=== PATIENT | male | born 1940 | race Caucasian/White ===

== ENCOUNTER 2016-11-14 22:58 | Inpatient (IN) | payer MEDICARE ==
[~2016-11-14] VITALS: Ht 177.8 cm; Wt 115.5 kg
[~2016-11-14 22:58] MED LIST: ARIP2TAB10 PO; CARV3.122 PO; CELE200C PO; CITA20TA11 PO; DIPH1TAB PO; FLUN25SP NOSTRIL; FLUN25SP NS; LACT1CAP65 PO; LOPE1TAB13 PO; METO2.5T12 PO; NITR0.3T6 SL; NITR0.4T SL; OMEG1CAP56 PO; OXYC-466 PO; POLY17PO6 PO; POTA20TA16 PO; PREG150C PO; RANI150C4 PO; SULF1TAB35 PO; TORS20TA3 PO; VIT1TABL83 PO; WARF2.5T82 PO; WARF5TAB7 PO; ZOLP5TAB2 PO; ZYL100 PO
--- NOTE | 2016-11-14 22:58 | ED.REPORT ---
HPI-Dyspnea / Wheezing Date of Service Nov 14, 2016 ED Provider: Dr. Ceferino Pink MD Patient is a 76 year old male with a history of A-fib on warfarin s/p pacemaker , CAD, previous TIA, CHF, hypertension and SURESH who presents to the ED via EMS with decreased LOC and dyspnea that began just prior to arrival. Family was visiting with the patient who was at his baseline prior to the onset of dyspnea. He was reportedly "blue" and unresponsive which is when the family decided to contact EMS. EMS report that the patient was found with decreased LOC at the scene and O2 stats in the 60's and 70's. His stats improved to 96% following CPAP treatment. Patient was able to provide one word responses en route. Patient is DNI. Nursing Notes Stated Complaint: DECREASED LOC, RESPIRATORY DISTRESS Nursing Notes Reviewed: Yes Allergies: Coded Allergies: morphine (Verified Adverse Reaction, Unknown, HALLUCINATIONS 20 YEARS AGO PER PATIENT, 01/31/16) WANTS TO TRY [employer] ANYWAY 06-06-11 Scheduled Allopurinol (Allopurinol) 100 Mg Tablet 100 MG PO QAM Aripiprazole (Abilify) 2 Mg Tablet 2 MG PO DAILY Celecoxib (Celebrex) 200 Mg Capsule 200 MG PO QAM Citalopram (Citalopram) 20 Mg Tablet 60 MG PO QAM Flunisolide (Flunisolide) 25 Ml [place] 2 SPRAYS NOSTRIL HS thursday Guaifenesin/Dextromethorphan (Robitussin Zcbqk-Inyok-Rgaj Dm) 200 Mg-10 Mg Capsule 5 ML PO Q6H Guaifenesin/Dextromethorphan (Robitussin Cough-Chest Dm Liq) 100 Mg-5 Mg/5 Ml Liquid 10 ML PO Q6H Lactobacillus Acidophilus (Probiotic) 1 Each Capsule 1 EACH PO DAILY Lanolin Alcohol/Mo/W.pet/[place] (Eucerin Creme) 454 Gm Cream..g. 454 GM TP BID Metolazone (Metolazone) 2.5 Mg Tablet 2.5 MG PO every other day Metolazone (Metolazone) 2.5 Mg Tablet 2.5 MG PO DAILY Metoprolol Succinate ER (Metoprolol Succinate ER) 25 Mg Tab.er.24h 12.5 MG PO DAILY [place]-3 Fatty Acids/Fish Oil ([place] 3 1,000 mg Softgel) 1 Each Capsule 1 EACH PO DAILY Potassium Chloride (Potassium Chloride) 20 Meq Tab.er.prt 20 MEQ PO DAILYWM Pregabalin (Lyrica) 150 Mg Capsule 150 MG PO BID Ranitidine (Ranitidine) 150 Mg Capsule 150 MG PO BID Sulfamethoxazole/Trimeth 800-160 mg (Bactrim DS 800-160 mg) 1 Each Tablet 1 TABLET PO BID Torsemide (Torsemide) 20 Mg Tablet 80 MG PO DAILY Vit B Comp/C/FA/Iron/Vit E (Vitamin B Complex Tablet) 1 Each Tablet 1 EACH PO DAILY Warfarin Sodium (Warfarin Sodium) 2.5 Mg Tablet 2.5 MG PO Sun/Thu/Thu//Sat Warfarin Sodium (Warfarin Sodium) 5 Mg Tablet 5 MG PO Mon/Thu. Zolpidem Tartrate (Edluar) 5 Mg Tab.subl 5 MG PO HS Scheduled PRN Calcitonin,Raymond,Synthetic (Calcitonin-Raymond) 3.7 Ml [place].pump 3.7 ML NS DAILY PRN PRN alternate nostrils Diphenoxylate/Atropine 2.5-0.025 mg (Lomotil 2.5-0.025 mg) 1 Each Tablet 1 TABLET PO BID PRN PRN For Diarrhea or Loose Stool Ibuprofen (Ibuprofen) 400 Mg Tablet 800 MG PO Q4H PRN PRN For Pain Lactulose (Lactulose) 20 Gm/30 Ml Solution 40 GM PO BID PRN PRN For Constipation Loperamide/Simethicone (Imodium Multi-Symptom Rel Cplt) 1 Each Tablet 1 EACH PO PRN For Diarrhea or Loose Stool Lubiprostone (Amitiza) 24 Mcg Capsule 24 MCG PO BID PRN PRN opioid induced constipation Magnesium Citrate (Magnesium Citrate) 296 Ml Solution 148 ML PO PRN For Constipation Nitroglycerin SL (Nitrostat) 0.4 Mg Tab.subl 0.4 MG SL Q5MIN PRN PRN For Chest Pain Nystatin (Nystatin) 1 Each Powder.ea. 1 EACH MC TID PRN PRN For Itching Polyethylene Glycol 3350 (Miralax) 17 Gm Powd.pack 17 GM PO DAILY PRN PRN For Constipation Saccharomyces Boulardii (Florastor) 250 Mg Capsule 250 MG PO BID PRN PRN For Diarrhea or Loose Stool oxyCODONE-Acetaminophen 10-325 mg (oxyCODONE-Acetaminophen 10-325 mg) 1 Each Tablet 1 TABLET PO Q6H PRN PRN For Pain General Time Seen by MD: 22:58 Chief Complaint Other (Dyspnea) Hx Obtained From: EMS Arrived By: Ambulance Sudden in Onset?: Yes Onset Occurred: Just prior to arrival Symptom Duration: Since onset Pertinent Negative: Pt denies other symptoms Recent Healthcare: No recent hospitalization, Recent doctor visit Past Medical History Past Medical History Notes: PCP: Dr. Van Sutton Senior Database Programmer: Dr. George Rene Past Medical History A-fib on warfarin h/o CHF (echo with EF of 30% January 2015) non-ischemic cardiomyopathy, ?ho CAD HTN h/o Saunders Pontocerebellear degeneration History of chronic Bactrim use for "lifelong staph infection suppression" (Patient self D/C'd 11/23/15) History of obstructive sleep apnea History of chronic bilateral lower extremity edema BPH Reports: Coronary artery disease, Transient ischemic attack Past Surgical History Bilateral knee replacement Pacemaker-recently revised Cardiac ablation Splenectomy Status post cardiac catheterization in October 02 widely patent coronary arteries Reports: Appendectomy Family History Reports: Stroke Smoking History Never Smoker Social History Been denied placement in homes many times due to behavioral issues, very poor social support, Alcohol Use: Denies alcohol use Drug Use: Denies drug use Other Social History: Poor social support, Lives alone, Local resident Ambulatory Status Walker Review of Systems Decreased responsiveness Unable to Obtain ROS Patient condition (Limited due to Pt condition - provided by EMS) Respiratory: Reports: Shortness of breath Complete sys rev & neg: except as marked. Neurologic: Reports: Change LOC Physical Exam Initial Vital Signs Vital Signs (First) Date Time Temp Pulse Resp B/P Pulse Ox O2 Delivery O2 Flow Rate FiO2 11/14/16 23:05 80 25 120/52 93 BiPAP 11/14/16 23:19 38.4 11/14/16 23:41 25 Initial VS: Reviewed, Vital signs abnormal Head / Eyes: Atraumatic, Normocephalic, PERRL Alertness: Positive: Responds to pain stimuli (Minimal response), Responds to verb stimuli (Minimal response) Appearance / Presentation: Positive: Obese, morbidly GENERAL: Limited exam due to minimal pt cooperation Neck: Atraumatic, Supple Respiratory / Chest: Atraumatic, Breath sounds = bilat Resp Distress / Stridor: Positive: Resp distress severe Cardiovascular: Heart rate NL, Regular rhythm, Heart sounds NL, Pulses = bilaterally Lower Ext Edema: Positive: Ankle (extending to the knee), Bilateral 3+ Abdomen: Atraumatic, Soft (Obese), Non-tender, BS normoactive (Active) Organomegaly / Mass / Hernia: Positive: Hernia is reducible, Hernia ventral Lower Extremity / Pelvis / MS: Atraumatic, Neurologic intact, Vascular intact LOWER EXTREMITIES: Well healed R knee replacement scar Skin: Atraumatic, Warm, Dry SKIN: Multiple skin tears and wounds to the lower extremities covered in bandages Chronic venous stasis changes to the skin of the ankles Neurologic: CN II - XII intact NEURO: No asymmetry in muscle tone Movement in all 4 extremities Upper Extremity / MS: Atraumatic, Neurologic intact, Vascular intact Interpretation & Diagnostics Interpretation & Diagnostics: Venous Blood Gas pH 7.459 pCO2 42 pO2 64.[address] ABDOMEN/PELVIS w/ [facility] IMPRESSION: Retained stool throughout the colon and within the rectal vault compatible constipation Lab Results Interpretation Result Diagram: 11/15/16 0437 11/15/16 0437 Test 11/14/16 23:10 11/15/16 00:26 Band Neutrophils % 0% (1-5) Phosphorus Level 3.4mg/dL (2.5-4.9) Magnesium Level 2.2mg/dL (1.6-2.6) Total Bilirubin 0.9mg/dL (0.0-1.2) Aspartate Amino Transf (AST/SGOT) 24U/L (0-50) Alanine Aminotransferase (ALT/SGPT) 12U/L (0-44) Alkaline Phosphatase 81U/L (25-160) Troponin T 0.013ug/L (0.0-0.011) Pro-B-Type Natriuretic Peptide 3454pg/mL (0-486) Total Protein 8.2g/dL (6.4-8.4) Albumin 3.9g/dL (3.4-5.0) Procalcitonin 0.12ng/mL (0.00-0.08) Urine Color Straw (YELLOW) Urine Appearance Slightly cloudy Urine pH 5.5 (5.0-8.0) Urine Specific [place] 1.014 (1.003-1.035) Urine Protein Negativemg/dL (NEG,TRACE) Urine Glucose (UA) Negativemg/dL (NEGATIVE) Urine Ketones Negativemg/dL (NEGATIVE) Urine Occult Blood Moderate (NEGATIVE) Urine Nitrite Positive (NEGATIVE) Urine Bilirubin Negative (NEGATIVE) Urine Urobilinogen Normalmg/dL (NORMAL) Urine Leukocyte Esterase Moderate (NEGATIVE) Urine RBC 0-2/hpf (0-2) Urine WBC 11-50/hpf (0-5) Urine Epithelial Cells Few/hpf (NONE-MOD) Urine Crystals Amorphous urates (NONE Urine Bacteria Many/hpf (NONE-FEW) Urine Hyaline Casts Rare/lpf (NONE) Urine Granular Casts None seen (NONE SEEN) Urine Waxy Casts None seen (NONE SEEN) Urine Red Blood Cell Casts None seen (NONE SEEN) Urine White Blood Cell Casts None seen (NONE SEEN) Urine Mucus Present (None Seen) Urine Trichomonas None seen (NONE SEEN) Urine Yeast None (NONE SEEN) Urinalysis Comment None Urine Culture Reflexed Indicated Urine Legionella pneumophilia Ag Negative (Negative) Lab Results Interpretation: Elevated white blood count, elevated lactic acid, elevated urine white cell count. ECG Interpretation ECG Interpretation: A-fib ventricular paced rhythm Rate 88 Time: 23:03 Interpreted by: ED physician X-Ray Chest Interpretation Chest Xray Interpretation: IMPRESSION: Left lower lobe pneumonia Interpretation / Wet Read by: Wet read ED physician Re-Eval/Medical Decision Med Decision/Clinical Course 76-year-old male who was found collapsed by his family. His O2 saturation was in the 60-70% range and he was blue. Paramedics started him on CPAP and transported him immediately. Upon arrival here he was minimally responsive but breathing on his own with the CPAP. His O2 saturations had improved to 96%. He is POLST form indicated that he would like noninvasive mechanical ventilation and resuscitation but not intubation. He was febrile and laboratory showed an elevated white count, elevated lactic acid, and elevated urine white blood count. He also has a left lower lobe infiltrate laterally. Blood cultures were obtained and he was given vancomycin, Rocephin, and azithromycin antibiotic coverage. CT scan of his head and abdomen were unremarkable. Case was discussed with Dr. Beatty the patient will be admitted to the hospitalist service, CCU. Re-Evaluation/Progress #1: Time of Eval: 00:41 )( Re-Eval Resp / Chest: Mild wheezing Treatment Summary: Albuterol neb continuous Patient Status: Condition improved Re-Evaluation/Progress Note: Breathing has improved and the pt is increasingly responsive. He is informed of his X-ray results. Re-Evaluation/Progress #2: Time of Eval: 01:02 Re-Evaluation/Progress Note: Pt's son is contacted and informed of his results, diagnosis and the plan to admit to the hospital. Re-Evaluation/Progress #3: Time of Eval: 01:08 Patient Status: Condition improved Re-Evaluation/Progress Note: Pt understands and agrees with the plan to admit. Consultation : Referral / Consult Name: Malcolm Beatty MD Consulted With: Hospitalist Call Returned at: 01:[address]: Will see patient, Agrees with eval, Agrees with plan, Referred to other consult Counseled Regarding: Diagnosis, Lab results, Need for admission Discharge & Departure Impression: Primary Impression: Sepsis Sepsis type: sepsis due to unspecified organism Qualified Code: A41.9 - Sepsis, unspecified organism Additional Impressions: Coma Coma depth: unspecified coma depth Coma timing: at hospital admission Qualified Code: R40.2443 - Other coma, without documented Mikael coma scale score, or with partial score reported, at hospital admission Left lower lobe pneumonia Pneumonia type: due to unspecified organism Qualified Code: J18.1 - Lobar pneumonia, unspecified organism Urinary tract infection Urinary tract infection type: acute cystitis Hematuria presence: without hematuria Qualified Code: N30.00 - Acute cystitis without hematuria Disposition: ADMITTED TO HOSPITAL Discharge Condition All VS Reviewed: Yes Condition: Stable Referrals: Van Sutton MD (PCP) Crit Care Except Billable Proc Time Spent: 75-104 minutes Services Performed: Patient management by me, Time spent at bedside, Reviewing test results, Reviewing imaging, Discussing patient care, Documentation in record, Time with fam/surrogate Critical Care Notes: 76-year-old male with coma and respiratory failure secondary to severe sepsis. He was stabilized and admitted to the CCU. Scribe Attestation Portions of this note were transcribed by Channing Pretty. I, Dr. Pink personally performed the history, physical exam and medical decision-making; I reviewed and confirmed the accuracy of the information in the transcribed note. Signed by: Abiodun Vu, 11/15/16 0112. copies to: Van Sutton MD, Howard L MD Nov 14, 2016 22:58 CHANNING PRETTY Nov 14, 2016 23:06 Re-Evaluation/Progress Note: Pt's son is contacted and informed of his results, diagnosis and the plan to admit to the hospital. Re-Evaluation/Progress #3: Time of Eval: 01:08 Patient Status: Condition improved Re-Evaluation/Progress Note: Pt understands and agrees with the plan to admit. Consultation : Referral / Consult Name: Malcolm Beatty MD Consulted With: Hospitalist Call Returned at: 01:[address]: Will see patient, Agrees with eval, Agrees with plan, Referred to other consult Counseled Regarding: Diagnosis, Lab results, Need for admission Discharge & Departure Impression: Primary Impression: Sepsis Additional Impressions: Coma Left lower lobe pneumonia Urinary tract infection Disposition: ADMITTED TO HOSPITAL Discharge Condition All VS Reviewed: Yes Condition: Stable Referrals: Van Sutton MD (PCP) Saraibanthony Attestation Portions of this note were transcribed by Channing Pretty. I, Dr. Pink personally performed the history, physical exam and medical decision-making; I reviewed and confirmed the accuracy of the information in the transcribed note. Signed by: Abiodun Vu, 11/15/16 0112. copies to: Van Sutton MD, Howard L MD Nov 14, 2016 22:58 CHANNING PRETTY Nov 14, 2016 23:06
[2016-11-14 23:05] VITALS: BP 120/52; PULSE 80; RESP 25; O2SAT 93
[2016-11-14] MEDS ORDERED: 0.9% Sodium Chloride 1,000 ML IV ONE (23:05)
[2016-11-14 23:19] VITALS: BP 105/52; PULSE 72; RESP 18; O2SAT 95
[2016-11-14 23:19] LABS: BASOPHILS % (AUTO) 0.1 % (0-3); EOSINOPHILS % (AUTO) 0 % (0-5); MONOCYTES % (AUTO) 3.1 % (4-12); Mean Corpuscular Hemoglobin 32.5 pg (27.0-35.0); Mean Corpuscular Volume 99.3 fL (81-100); NEUTROPHILS % (AUTO) 92.7 % (40-74); Platelet Count 209 bil/L (150-400)
--- NOTE | 2016-11-14 23:20 | ABG ---
DateTimeAnalyzed 23:13:00 -_ pH ____7.459 - pCO2 ___42.3__ -mmHg pO2 ___64.5__ -mmHg HCO3- ___29.6__ -mmol/L ABE ____5.5__ -mmol/L tHb ___13.6__ -g/dL O2Hb ___90.9__ -% COHb ____1.8__ -% MetHb ____1.3__ -% sO2 ___93.8__ -% FIO2 ___25.0__ -% CPAP ___16.0__ -cmH2O PEEP ____6.0__ -cmH2O Set_RR ___16.0__ -b/min Drawn By _LAB TECH - Date/Time Notified____ 23:19:00 -_ Spontaneous_RR ___24.0__ -b/min Oxygen Device 1 ____BIPAP - Notified Whom DR LEIBRANDT - B 756 -mmHg tO2 ___17.4__ -Vol% Robinson test N/A -
[2016-11-14 23:40] LABS: TROPONIN T 0.013 ug/L (0.0-0.011)
[2016-11-14 23:41] VITALS: RESP 24; O2SAT 95
[2016-11-14 23:52] LABS: Magnesium 2.2 mg/dL (1.6-2.6)
[2016-11-15] VITALS (14 sets, daily range): BP systolic 90–133; BP diastolic 42–90; PULSE 70–78; RESP 17–28; O2SAT 91–99
[2016-11-15] MEDS ORDERED: Azithromycin Inj 500 MG in Dextrose 5% 250 ML IV ONE (00:40)
[2016-11-15] MEDS ORDERED: Vancomycin Dose per Pharmacist XX ONE (00:40)
[2016-11-15] MEDS ORDERED: cefTRIAXone Inj 2,000 MG in Dextrose 5% Minibag Plus 50 ML IV ONE (00:40)
[2016-11-15 00:55] LABS: APPEARANCE,URINE SLIGHTLY CLOUDY (CLEAR,HAZY); COLOR,URINE STRAW (YELLOW); OCCULT BLOOD,URINE MODERATE (NEGATIVE); PH,URINE 5.5 (5.0-8.0)
[2016-11-15 00:56] LABS: UROBILINOGEN,URINE NORMAL (NORMAL)
[2016-11-15 01:07] LABS: INR 3.06 ratio
[2016-11-15] MEDS ORDERED: Vasopressin Inj 20 UNIT in 0.9% Sodium Chloride 100 ML IV SCH (01:10)
[2016-11-15] MEDS ORDERED: Lactated Ringer's 1,000 ML IV PRN (01:10)
[2016-11-15] MEDS ORDERED: DOBUTamine 500 mg/250 D5W 500,000 MCG in IV Premix 1 EACH IV PRN (01:10)
[2016-11-15] MEDS: Lactated Ringer's 1,000 ML IV SCH ×2 (01:10→06:25)
[2016-11-15] MEDS: 0.9% Sodium Chloride 1,000 ML IV SCH ×5 (01:10→13:57)
[2016-11-15] MEDS ORDERED: Norepineph 8,000 mCg/250 mL NS 8,000 MCG in IV Premix 1 EACH IV PRN (01:10)
[2016-11-15] MEDS ORDERED: Ondansetron 2 mg/mL 2 mL Inj IVPUSH PRN (01:10)
[2016-11-15] MEDS ORDERED: Vancomycin Dose per Pharmacist XX SCH (01:10)
--- NOTE | 2016-11-15 01:33 | PCM.HPMED ---
Subjective Date of Service Nov 15, 2016 Primary Provider: Admitting Physician: Primary Care Physician: Van Sutton MD Attending Physician: Admit Status: From the Emergency Department, Full Admit, Critical Care Chief Complaint: Unresponsive History of Present Illness: Jerod Wilkins is a 76 year old male with Chronic A-fib on warfarin s/p pacemaker, Coronary syndrome, previous TIA, CHF, hypertension and SURESH who presents to [facility] emergency department via EMS with decreased consciousness and dyspnea that began just prior to arrival. Patient was poor historian due to decreased consciousness. NO members were present on my evaluation. Emergency department records showed: Family was visiting with the patient who was at his baseline prior to the onset of dyspnea. He was reportedly "blue" and unresponsive which is when the family decided to contact EMS. EMS report that the patient was found with decreased LOC at the scene and O2 stats in the 60's and 70's. His stats improved to 96% following CPAP treatment. Patient was able to provide one word responses en route. Case discussed with Dr Pink, patient placed on BIPAP as he is DNI, with some noticeable improvement. Patient started on Antibiotics and received Vancomycin, Ceftriaxone and Azithromycin. Review of Systems: unable to be obtained due to confusion Allergies Coded Allergies: morphine (Verified Adverse Reaction, Unknown, HALLUCINATIONS 20 YEARS AGO PER PATIENT, 01/31/16) WANTS TO TRY [employer] ANYWAY 06-06-11 Home Medications From [facility], not yet confirmed Jerod Wilkins Jr. [id number] 1940 11/05/2016 02:31 PM Page: 06/19 Lactobacillus acidophilus capsule daily allopurinol 100 mg tablet take 1 tablet by oral route 1 times every day Amitiza 24 mcg capsule take 1 capsule by oral route 2 times every day with food and water aripiprazole 2 mg tablet take 1 tablet daily Bactrim DS 800 mg-160 mg tablet take 1 tablet by oral route every 12 hours calcitonin (salmon) 200 unit/actuation nasal spray Use 1 spray in alternating nostrils daily Celebrex 200 mg capsule take 1 capsule (200MG) by ORAL route every morning for pain/inflammation. Cetaphil Moisturizing topical cream apply by Topical route 1 times every day for dry skin. No stop date citalopram 20 mg tablet take 3 tablet by oral route every day docusate sodium 100 mg capsule take 1 capsule by oral route 2 times every day at bedtime as needed Eucerin topical cream Apply BID to bilateral lower extremities Eucerin Daily Protection SPF 30 lotion apply BID daily Fish Oil 1,000 mg (120 mg-180 mg) capsule daily Florastor 250 mg capsule 1 tab bid ibuprofen 200 mg tablet take 2 tablet by oral route tid as needed for PAIN ( with food) Imodium Multi-Symptom Relief 2 mg-125 mg tablet 1 tab PRN for bowel movement lactulose 20 gram/30 mL oral solution take 30 milliliter by oral route 2 times every day lidocaine 4 % laryngotracheal solution as needed prior to wound change Lomotil 2.5 mg-0.025 mg tablet take 1 tablet by oral route every 12 hours as needed Lyrica 150 mg capsule take 1 capsule by oral route 2 times every day magnesium citrate oral solution 0.5 bottle as needed for constipation if bowel protocol and lactulose is ineffective metolazone 2.5 mg tablet take 1 tablet by oral route every 2 days metoprolol succinate ER 25 mg tablet,extended release 24 hr take 0.5 (12.5 mg) tablet by oral route every day Nitrostat 0.[address] 1 tablet by sublingual route at 1st sign of attack; may repeat every 5 minutes up to 3 tabs; if norelief seek medical help nystatin 100,000 unit/gram topical powder apply by topical route 2 times every 8 hours to the affected area(s) prn oxycodone-acetaminophen 10 mg-325 mg tablet take 1 tablet by oral route every 6 hours as needed potassium chloride ER 20 mEq tablet,extended release(part/cryst) take 1 tablet by oral route every day with food ranitidine 150 mg tablet take 1 tablet (150MG) by oral route 2 times every day torsemide 20 mg tablet take 4 tablet by oral route every morning vitamin B complex tablet daily warfarin 5 mg tablet take 1/2 tablet (2.5mg) Mondays and 1 tablet (5mg) all other days of the week zolpidem 5 mg tablet take 1 tablet by oral route every day at bedtime ANTICOAGULATION THERAPY: Take your warfarin as directed. Start taking your warfarin on 11/05/2016. The warfarin should be taken Sun 2.5mg (1 tablet), Mon 2.5mg (2 tablets), Tu 2.5mg (1 tablet), Thu 2.5mg (1 tablet), Thurs 2.5mg (1 tablet), Fri 2.5mg (2 tablets), Sat 2.5mg (1 tablet). PMH Congestive heart failure. Coronary artery disease. Atrial fibrillation s/p AV Ablation Pacer in place. Obstructive sleep apnea. Obesity. Bilateral lower extremity edema with venous stasis changes and chronic Unna wraps. Gout. Benign prostatic hypertrophy. History of Staph lugdunensis in the left knee in 2010 without any clarity as to how this was resolved in the chart. . 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 Status post appendectomy. Achilles tendon surgery Pacemaker implantation Family History His father at age 50 of a cerebrovascular accident. Mother lived to 93 Brother has Atrial fibrillation Social History Hx Alcohol Use: No Hx Substance Use: No Hx Tobacco Use: No Smoking Status: Never Smoker Living Arrangement: Alone Exam Vital Signs Vital Sign - Last Date Time Temp Pulse Resp B/P Pulse Ox O2 Delivery O2 Flow Rate FiO2 11/15/16 00:03 72 22 98/54 93 11/14/16 23:41 25 11/14/16 23:19 38.4 BiPAP Intake and Output 11/14/16 11/14/16 11/15/16 Cumulative From/Thru 15:00 23:00 07:00 11/14/16 23:05 - 11/15/16 00:02 Intake Total 999 ml 999 ml Balance 999 ml 999 ml Intake IV Total 999 ml 999 ml Exam General: Arousable, tachypnic and on the BIPAP machine Eyes: PERRLA, Scleral Anicteric Mouth: Mouth Normal, Mucous Membranes Moist/[place] Neck: Supple, no Thyromegaly, trachea central. Chest & Lungs: decreased breathe sounds at bases Cardiovascular: Normal S1, Normal S2, No Murmurs/Rubs/Gallops, Regular Rate/ Rhythm Pulses: Radial (present and equal), Dorsalis Pedi (present and equal) Abdomen: Soft, Non-tender, Non-distended, Normoactive bowel tones. Musculoskeletal: Unremarkable. Normal range of motion, no swollen or erythematous joints Extremities: 1 + pitting edema, no cyanosis, no clubbing. Skin: No rashes. Warm and dry, no erythematous areas. healed leg ulcers. Multiple skin tears and wounds to the lower extremities covered in bandages Chronic venous stasis changes to the skin of the ankles Neurological: Grossly neurologically intact moving all extremities Lymphatic: Lymph nodes Cervical and Axillary not palpable. Lab and Diagnostics Labs Laboratory Tests Test 11/14/16 23:10 11/15/16 00:26 White Blood Count 20.5th/mm3 (3.8-10.1) Red Blood Count 4.16mil/mm3 (4.40-5.80) Hemoglobin 13.5g/dL (13.8-17.2) Hematocrit 41.3% (41.0-50.0) Mean Corpuscular Volume 99.3fL (81-100) Mean Corpuscular Hemoglobin 32.5pg (27.0-35.0) Mean Corpuscular Hemoglobin Concent 32.7% (32.0-37.0) Red Cell Distribution Width 13.6% (12.3-15.4) Platelet Count 209bil/L (150-400) Neutrophils (%) (Auto) 92.7% (40-74) Lymphocytes (%) (Auto) 3.8% (14-46) Monocytes (%) (Auto) 3.1% (4-12) Eosinophils (%) (Auto) 0% (0-5) Basophils (%) (Auto) 0.1% (0-3) Band Neutrophils % 0% (1-5) Prothrombin Time 33.5sec (8.1-12.5) Prothromb Time International Ratio 3.06ratio Sodium Level 137mEq/L (134-144) Potassium Level 3.3mEq/L (3.5-5.2) Chloride Level 90mEq/L (97-108) Carbon Dioxide Level 26mmol/L (18-29) Blood Urea Nitrogen 62mg/dL (8-27) Creatinine 1.95mg/dL (0.76-1.27) Estimat Glomerular Filtration Rate 36mL/min (>59) Glucose Level 161mg/dL (60-99) Lactic Acid Level 3.4mmol/L (0.4-2.0) Calcium Level 9.3mg/dL (8.5-10.1) Magnesium Level 2.2mg/dL (1.6-2.6) Total Bilirubin 0.9mg/dL (0.0-1.2) Aspartate Amino Transf (AST/SGOT) 24U/L (0-50) Alanine Aminotransferase (ALT/SGPT) 12U/L (0-44) Alkaline Phosphatase 81U/L (25-160) Troponin T 0.013ug/L (0.0-0.011) Pro-B-Type Natriuretic Peptide 3454pg/mL (0-486) Total Protein 8.2g/dL (6.4-8.4) Albumin 3.9g/dL (3.4-5.0) Urine Color Straw (YELLOW) Urine Appearance Slightly cloudy Urine pH 5.5 (5.0-8.0) Urine Specific [place] 1.014 (1.003-1.035) Urine Protein Negativemg/dL (NEG,TRACE) Urine Glucose (UA) Negativemg/dL (NEGATIVE) Urine Ketones Negativemg/dL (NEGATIVE) Urine Occult Blood Moderate (NEGATIVE) Urine Nitrite Positive (NEGATIVE) Urine Bilirubin Negative (NEGATIVE) Urine Urobilinogen Normalmg/dL (NORMAL) Urine Leukocyte Esterase Moderate (NEGATIVE) Urine RBC 0-2/hpf (0-2) Urine WBC 11-50/hpf (0-5) Urine Epithelial Cells Few/hpf (NONE-MOD) Urine Crystals Amorphous urates (NONE Urine Bacteria Many/hpf (NONE-FEW) Urine Hyaline Casts Rare/lpf (NONE) Urine Granular Casts None seen (NONE SEEN) Urine Waxy Casts None seen (NONE SEEN) Urine Red Blood Cell Casts None seen (NONE SEEN) Urine White Blood Cell Casts None seen (NONE SEEN) Urine Mucus Present (None Seen) Urine Trichomonas None seen (NONE SEEN) Urine Yeast None (NONE SEEN) Urinalysis Comment None Urine Culture Reflexed Indicated Microbiology 11/14/16 Blood Culture, Received Pending 11/15/16 Urine Culture, Received Pending Result Diagram: 11/14/16 2310 11/14/16 2310 Cardiac Echo Impressions Interpretation Summary 09/17/16 The study quality was technically difficult. A contrast injection of Definity was performed to improve assessment of LV function. The left ventricle is mildly dilated. The ejection fraction is estimated to be 50-55%. Compared to the prior exam, left ventricular function is moderately improved. The aortic valve is mildly calcified. The aortic valve is not well visualized. Leaflet mobility is moderately reduced. No significant change in LVOT velocity, consider DIAZ if clinically indicated to further evaluate AV . Assessment & Plan Jerod Wilkins is a 76 year old male with Chronic A-fib on warfarin s/p pacemaker, Coronary syndrome, previous TIA, Congestive heart failure, hypertension and SURESH who presents to [facility] emergency department via EMS with decreased consciousness and dyspnea 1. Acute Respiratory Failure. Present on admission. Persistent and ongoing Etiology is likely due to Sepsis from Pneumonia. Differential diagnosis includes Acute Congestive heart failure (less likely based on no leg edema, BNP despite being elevated is at baseline), Pulmonary embolism (patient therapeutic on Coumadin) - continue BIPAP support and oxygen supplementation - treat underlying cause (see below) 2 Community Acquired Pneumonia. Present on admission Unclear if the patient aspirated. He is immunocompromised but does not meet criteria for healthcare associated pneumonia - continue Vancomycin and Zosyn IV to cover anaerobes - nothing by mouth, ordering a swallow evaluation 3 Severe Sepsis. Present on admission Meeting criteria with fever, tachypnea and Leukocytosis with pulmonary source of infections. Lactic acidosis - continue fluid resuscitations according to sepsis protocol - early initiation of antibiotics 4 Lactic acidosis. Present on admission Due to tissue hypoxia from sepsis - trending levels till normal 5 Acute Kidney Injury. Preset on admission Likely due to pre renal azotemia but consider Acute tubular necrosis Previous episodes of renal disease during previous admissions, suspect patient has underlying chronic kidney disease - avoid nephrotoxic insults 6 Acute Encephalopathy. Present on admission - high risk for delirium, avoid psychoactive if possible 7 Chronic heart failure with improvement of systolic function - holding diuretics for now - monitor closely for clinical evidence of fluid overload 8 Chronic Atrial fibrillation rate controlled currently - monitor on telemetry - Coumadin managed by Pharmacist 9 Coronary disease chronic Hypertension - Acetaminophen as needed for mild pain/fever/headache - Bowel regimen as needed - Antiemetic as needed Patient admitted under inpatient status with expected length of stay > 2 midnights for severity of present symptoms, complexities of treatment plan and risk for adverse event . Resuscitation Status: Limited Interventions (DNI) Time spent 50 minutes critical time spend Malcolm Beatty MD Nov 15, 2016 01:33 Bactrim DS 800 mg-160 mg tablet take 1 tablet by oral route every 12 hours calcitonin (salmon) 200 unit/actuation nasal spray Use 1 spray in alternating nostrils daily Celebrex 200 mg capsule take 1 capsule (200MG) by ORAL route every morning for pain/inflammation. citalopram 20 mg tablet take 3 tablet by oral route every day docusate sodium 100 mg capsule take 1 capsule by oral route 2 times every day at bedtime as needed Florastor 250 mg capsule 1 tab bid ibuprofen 200 mg tablet take 2 tablet by oral route tid as needed for PAIN ( with food) lactulose 20 gram/30 mL oral solution take 30 milliliter by oral route 2 times every day Lomotil 2.5 mg-0.025 mg tablet take 1 tablet by oral route every 12 hours as needed Lyrica 150 mg capsule take 1 capsule by oral route 2 times every day magnesium citrate oral solution 0.5 bottle as needed for constipation if bowel protocol and lactulose is ineffective metolazone 2.5 mg tablet take 1 tablet by oral route every 2 days metoprolol succinate ER 25 mg tablet,extended release 24 hr take 0.5 (12.5 mg) tablet by oral route every day Nitrostat 0.[address] 1 tablet by sublingual route at 1st sign of attack; may repeat every 5 minutes up to 3 tabs; if norelief seek medical help oxycodone-acetaminophen 10 mg-325 mg tablet take 1 tablet by oral route every 6 hours as needed potassium chloride ER 20 mEq tablet,extended release(part/cryst) take 1 tablet by oral route every day with food ranitidine 150 mg tablet take 1 tablet (150MG) by oral route 2 times every day torsemide 20 mg tablet take 4 tablet by oral route every morning vitamin B complex tablet daily Resuscitation Status: Limited Interventions (DNI) Time spent 50 minutes critical time spend Malcolm Beatty MD Nov 15, 2016 01:33
[2016-11-15 01:50] LABS: Phosphorus 3.4 mg/dL (2.5-4.9)
--- NOTE | 2016-11-15 01:59 | ABG ---
DateTimeAnalyzed 01:53:00 -_ pH ____7.457 - 7.350 7.450 pCO2 ___46.1__ -mmHg 35.0 45.0 pO2 ___64.1__ -mmHg 69.0 116 HCO3- ___32.1__ -mmol/L 22.0 26.0 ABE ____7.5__ -mmol/L -2.0 2.0 tHb ___12.1__ -g/dL O2Hb ___90.8__ -% COHb ____1.6__ -% MetHb ____1.4__ -% sO2 ___93.6__ -% 25.0 FIO2 ___25.0__ -% CPAP ___16.0__ -cmH2O PEEP ____6.0__ -cmH2O Set_RR ___16.0__ -b/min Drawn By MM - Date/Time Notified____ 01:58:00 -_ Spontaneous_RR ___18.0__ -b/min Oxygen Device 1 ____BIPAP - Notified By MM - Notified Whom DR FUIMAONO - B 757 -mmHg tO2 ___15.4__ -Vol% Robinson test _Positive -
[2016-11-15] MEDS: Acetaminophen IV 1,000 MG in IV Premix 1 EACH IV PRN ×2 (03:29→18:49)
--- NOTE | 2016-11-15 03:32 | PCM.CONPHA ---
Subjective Date of Service: Nov 15, 2016 Requesting Provider: Malcolm Beatty MD Unresponsive Reason for Pharmacy Consult: Vancomycin Dosing Objective Vital Signs Date Time Temp Pulse Resp B/P Pulse Ox O2 Delivery O2 Flow Rate FiO2 11/15/16 02:40 74 18 91/51 95 30 11/15/16 02:39 38.1 70 18 104/55 96 BiPAP 11/15/16 01:38 38.1 70 18 104/55 96 BiPAP 11/15/16 00:03 72 22 98/54 93 11/14/16 23:41 24 95 25 11/14/16 23:19 38.4 72 18 105/52 95 BiPAP 11/14/16 23:05 80 25 120/52 93 BiPAP Weight (Kilograms): 123.000 Height (Feet): 5 Height (Inches): 10.00 Test 11/14/16 23:10 11/15/16 00:26 11/15/16 02:45 White Blood Count 20.5th/mm3 (3.8-10.1) Red Blood Count 4.16mil/mm3 (4.40-5.80) Hemoglobin 13.5g/dL (13.8-17.2) Hematocrit 41.3% (41.0-50.0) Mean Corpuscular Volume 99.3fL (81-100) Mean Corpuscular Hemoglobin 32.5pg (27.0-35.0) Mean Corpuscular Hemoglobin Concent 32.7% (32.0-37.0) Red Cell Distribution Width 13.6% (12.3-15.4) Platelet Count 209bil/L (150-400) Neutrophils (%) (Auto) 92.7% (40-74) Lymphocytes (%) (Auto) 3.8% (14-46) Monocytes (%) (Auto) 3.1% (4-12) Eosinophils (%) (Auto) 0% (0-5) Basophils (%) (Auto) 0.1% (0-3) Band Neutrophils % 0% (1-5) Prothrombin Time 33.5sec (8.1-12.5) Prothromb Time International Ratio 3.06ratio Sodium Level 137mEq/L (134-144) Potassium Level 3.3mEq/L (3.5-5.2) Chloride Level 90mEq/L (97-108) Carbon Dioxide Level 26mmol/L (18-29) Blood Urea Nitrogen 62mg/dL (8-27) Creatinine 1.95mg/dL (0.76-1.27) Estimat Glomerular Filtration Rate 36mL/min (>59) Glucose Level 161mg/dL (60-99) Calcium Level 9.3mg/dL (8.5-10.1) Phosphorus Level 3.4mg/dL (2.5-4.9) Magnesium Level 2.2mg/dL (1.6-2.6) Total Bilirubin 0.9mg/dL (0.0-1.2) Aspartate Amino Transf (AST/SGOT) 24U/L (0-50) Alanine Aminotransferase (ALT/SGPT) 12U/L (0-44) Alkaline Phosphatase 81U/L (25-160) Troponin T 0.013ug/L (0.0-0.011) Pro-B-Type Natriuretic Peptide 3454pg/mL (0-486) Total Protein 8.2g/dL (6.4-8.4) Albumin 3.9g/dL (3.4-5.0) Procalcitonin 0.12ng/mL (0.00-0.08) Urine Color Straw (YELLOW) Urine Appearance Slightly cloudy Urine pH 5.5 (5.0-8.0) Urine Specific [place] 1.014 (1.003-1.035) Urine Protein Negativemg/dL (NEG,TRACE) Urine Glucose (UA) Negativemg/dL (NEGATIVE) Urine Ketones Negativemg/dL (NEGATIVE) Urine Occult Blood Moderate (NEGATIVE) Urine Nitrite Positive (NEGATIVE) Urine Bilirubin Negative (NEGATIVE) Urine Urobilinogen Normalmg/dL (NORMAL) Urine Leukocyte Esterase Moderate (NEGATIVE) Urine RBC 0-2/hpf (0-2) Urine WBC 11-50/hpf (0-5) Urine Epithelial Cells Few/hpf (NONE-MOD) Urine Crystals Amorphous urates (NONE Urine Bacteria Many/hpf (NONE-FEW) Urine Hyaline Casts Rare/lpf (NONE) Urine Granular Casts None seen (NONE SEEN) Urine Waxy Casts None seen (NONE SEEN) Urine Red Blood Cell Casts None seen (NONE SEEN) Urine White Blood Cell Casts None seen (NONE SEEN) Urine Mucus Present (None Seen) Urine Trichomonas None seen (NONE SEEN) Urine Yeast None (NONE SEEN) Urinalysis Comment None Urine Culture Reflexed Indicated Lactic Acid Level 1.7mmol/L (0.4-2.0) Assessment/Plan Assessment/Plan A: * Vancomycin dosing by pharmacy for 76 y/o man with community acquired pneumonia and severe sepsis * He is also being started on Zosyn * Estimated CrCl is 42 mL/min (Cockcroft & Gault using AdjBW) * Estimated vancomycin half-life is 18 hours and estimated Vd is 86 liters P: * Give a 2000 mg IV vancomycin loading dose * continue with vancomycin 1750 mg IV every 24 hours * Target a trough range of 15 - 20 mcg/mL * Drawing at trough level prior to the third dose Thank you. Pharmacy will continue to follow this patient. Demi Hager Nov 15, 2016 03:31
[2016-11-15] MEDS ORDERED: 0.9% Sodium Chloride 1,000 ML IV PRN (03:40)
[2016-11-15] MEDS ORDERED: Vasopressin Inj 20 UNIT in 0.9% Sodium Chloride 100 ML IV PRN (03:41)
[2016-11-15] MEDS ORDERED: KCl 40 mEq/500 mL D5W(K 3 - 3.7 & Creat < 2) IV ONE ×3 (03:55→21:20)
--- NOTE | 2016-11-15 04:43 | NUR ---
P) Admit Pt. admitted to CCU at approx. 0220 am from ER, no family accompanied pt. and pt. was non-responsive except to pain so admission information is based on previous record. Pt. febrile, T-max 38.0c axillary, face and skin dark and red, multitudinous skin tears, abrasions and bruises, and a small spot on his L buttock that is red and does not farzad to pressure, rest of nicolás area red, came up from ER with a large, incontinent, soft brown stool. Lower extremities with 3+ edema, pitting slightly, PVD skin changes and multiple scars. Lungs with coarse, decreased breath sounds bilat. and scattered expiratory rales throughout. Cardiac rhythm paced with IVCD and PVC's and prolonged QTc max so far 0.57. I) Meds per 's orders, cont. to monitor, turning q2h and floating heels. E) Resting quietly between turns, tolerating bipap.
[2016-11-15 04:53] LABS: BASOPHILS % (AUTO) 0.1 % (0-3); EOSINOPHILS % (AUTO) 0 % (0-5); Mean Corpuscular Volume 100.3 fL (81-100)
[2016-11-15 05:00] LABS: MONOCYTES % (AUTO) 10.8 % (4-12); NEUTROPHILS % (AUTO) 83.2 % (40-74); Platelet Count 193 bil/L (150-400)
[2016-11-15] MEDS ORDERED: NYST1POW23 MC (06:14)
[2016-11-15] MEDS ORDERED: WOOL454C TP (06:14)
[2016-11-15] MEDS ORDERED: LUBI24CA4 PO (06:14)
[2016-11-15] MEDS ORDERED: MAGN296S PO (06:14)
[2016-11-15] MEDS ORDERED: GUAI237L83 PO (06:14)
[2016-11-15] MEDS ORDERED: TORS20TA3 PO (06:14)
[2016-11-15] MEDS ORDERED: METO25TA99 PO (06:14)
[2016-11-15] MEDS ORDERED: LACT10SO60 PO (06:14)
[2016-11-15] MEDS ORDERED: IBUP400T22 PO (06:14)
[2016-11-15] MEDS ORDERED: WARF5TAB7 PO (06:14)
[2016-11-15] MEDS ORDERED: GUAI1CAP65 PO (06:14)
[2016-11-15] MEDS ORDERED: WARF2.5T82 PO (06:14)
[2016-11-15] MEDS ORDERED: OXYC-466 PO (06:14)
[2016-11-15] MEDS ORDERED: CALC3.8S NS (06:14)
[2016-11-15] MEDS ORDERED: SACC250C PO (06:14)
[2016-11-15 07:37] LABS: INR 3.29 ratio
[2016-11-15] MEDS: Piperacillin-Tazo 3.375 Gm Inj 3.375 GM in Dextrose 5% Minibag Plus 50 ML IV SCH ×2 (07:50→17:28)
--- NOTE | 2016-11-15 07:55 | DRSVH ---
PROCEDURE: CT BRAIN WITHOUT CONTRAST ([id number]) INDICATIONS: collapse, obtunded TECHNIQUE: Noncontrast 4.5 mm thick angled axial sections acquired from the foramen magnum to the vertex, with c oronal reformats. COMPARISON: None. FINDINGS: Image quality: Excellent. CSF spaces: Basal cisterns are patent. No extra-axial fluid collections. The ventricles are symmet jacklyn in size and shape. Brain: No intracranial bleeds or masses. There is cerebral volume loss for age, with resultant vent ricular and sulcal prominence. There are periventricular and deep white matter chronic small vessel ischemic changes. There is intracranial internal carotid artery atherosclerosis. Skull and face: Calvarium and visualized facial bones appear intact, without suspicious lesions. Sinuses: Visualized sinuses and mastoids are clear. IMPRESSION: No acute intracranial disease process. Dictated by: Teena De La Fuente MD, PhD on 11/15/2016 at 7:52 Approved by: Teena De La Fuente MD, PhD on 11/15/2016 at 7:54
--- NOTE | 2016-11-15 08:11 | DRSVH ---
PROCEDURE: CT ABDOMEN AND PELVIS WITH CONTRAST ([id number]) INDICATIONS: sepsis TECHNIQUE: After the administration of intravenous contrast, 5 mm thick sections acquired from the diaphragm to the symphysis. 5 mm coronal and sagittal reformats were acquired. For radiation dose reduction, the following was used: automated exposure control, adjustment of mA and/or kV according to patient siz e. COMPARISON: [facility], CT, ABD/PELVIS W/CON (PNL), 01/31/2013, 16:17. [facility], CT, CT CHEST ABD PELVIS WO CON, 05/17/2015, 1:37. FINDINGS: Image quality: Excellent. ABDOMEN: Lung bases: Lung bases are clear. Heart size is enlarged. Presence of cardiac pacer leads noted. Ch ronic left rib fractures are noted which have healed in deformity. Solid organs: Liver is in size and enhancement. Diffuse fatty infiltration of the liver is noted. Th e spleen is absent. Gallbladder is within normal limits. Biliary system is non dilated. Pancreas en hances normally. No adrenal nodules. Kidneys demonstrate normal size and enhancement, without hydro nephrosis. Multiple nonobstructing right renal stones are noted which range in size from 2 mm to 1.1 cm are stable compared to prior CT scan.. Left renal cyst noted. Peritoneum and bowel: Bowel loops demonstrate normal wall thickness and caliber. Large amount of sto ol noted in the colon and the rectal vault. No free fluid or air. The appendix is not definitely vis ualized, however, no inflammatory changes are noted adjacent to the cecum. Nodes and vessels: 1.7 cm left periaortic retroperitoneal low-density node is stable compared to prio r examination obtained 05/17/2015. Aorta and inferior vena cava are normal in size. Scattered atherosc lerotic calcifications involving the abdominal and pelvic vasculature. Miscellaneous: No ventral hernias. PELVIS: Genitourinary: Bladder wall thickness is normal. Miscellaneous: No inguinal hernias or adenopathy. Bones: No suspicious bony lesions. No vertebral body compression fractures. Spine degenerative disc disease and facet arthropathy. IMPRESSION: 1. Severe fecal loading throughout the colon. Please correlate with clinical data. 2. No free fluid or free air. 3. No inflammatory changes identified. 4. No definite abscess identified. Dictated by: Teena De La Fuente MD, PhD on 11/15/2016 at 8:02 Approved by: Teena De La Fuente MD, PhD on 11/15/2016 at 8:09
--- NOTE | 2016-11-15 08:24 | DRSVH ---
PROCEDURE: X-RAY CHEST ONE VIEW, PORTABLE ([id number]) INDICATIONS: decreased LOC TECHNIQUE: One view of the chest was acquired. COMPARISON: [facility], CR, XR CHEST 1VW (PORTABLE), 11/26/2015, 4:22. [facility], CR, XR CHEST 1VW (PORTABLE), 03/08/2016, 14:05. FINDINGS: Surgical changes and devices: Cardiac AICD is stable in appearance. Lungs and pleura: No pleural effusions or pneumothorax. Lungs are clear of acute opacities. Right l edvin granuloma is stable compared to prior examination.. Mediastinum: Mediastinal contours appear normal. Heart size is normal. Bones and chest wall: No suspicious bony lesions. Overlying soft tissues appear unremarkable. IMPRESSION: No acute cardiopulmonary disease process. Dictated by: Teena De La Fuente MD, PhD on 11/15/2016 at 8:21 Approved by: Teena De La Fuente MD, PhD on 11/15/2016 at 8:22
--- NOTE | 2016-11-15 11:52 | NUR ---
NUTRITION ASSESSMENT: ASSESS:76 YO male presents with decreased consciousness and dyspnea that began just prior to arrival. Apparently family was visiting with the patient who was at his baseline prior to the onset of dyspnea. He was reportedly "blue" and unresponsive which is when the family decided to contact EMS. EMS reported that the patient was found with decreased LOC at the scene and O2 stats in the 60's and 70's. His stats improved to 96% following CPAP treatment. Patient was able to provide one word responses en route. Patient was placed on BIPAP in the ED because he is DNI, with noticeable improvement, and transferred to CCU with severe sepsis. PMHx:A-fib requiring Coumadin, pacemaker placement, CAD, TIA, CHF, HTN, SURESH. DIET:NPO, pending swallow evaluation. LABS: Reviewed. K+ 3.3, Chloride 92, BUN 61, Cr 1.93, Glu 165, Ca 8.3, PAB 18. MEDICATIONS: Reviewed. Coumadin. NUTRITION FOCUSED PHYSICAL ASSESSMENT: GI symptoms / stool: Large BM today.Carlos: 11. Skin Integrity: Wound consult initiated related to multiple skin tears, abrasions, bruising, with a questions pressure injury on L. buttock. Evaluation pending. ANTHROPOMETRICS: Current Wt: 123.0 kg BMI: 38.0 kg/m2. IBW: 75.45 kg (163% IBW) ESTIMATED NEEDS (CLASS II OBESITY): Calories: 1660 - 1886 kcal (22 - 25 kcal / kg IBW) Protein: 136 - 151 g protein (1.8 - 2.0 g / kg IBW) Fluid: Approx. 3075 mL (25 mL / kg BW) NUTRITION DIAGNOSIS: 1)Chewing / swallowing difficulties related to requirement for BIPAP, altered mental status, pending swallow evaluation. INTERVENTION: 1) No intervention at this time, pending swallow and wound evaluations. MONITOR/EVALUATE: Diet advance / tolerance, PO intake, labs, wound status, GI/nutrition status. Follow up per high nutrition risk guidelines.
--- NOTE | 2016-11-15 15:30 | NUR ---
P: Resp, Hemodynamics, Neuro, I,E: Pt was awake this am on first exam and asking why he was in the hospital. He was alert and approp. BiPap was on until approx 1000hrs and he was placed on oxymask and then NC as his sats were high 90's and he was eupneic. Sputum was sent to the lab. However, this afternoon at approx 1530hrs he became short of breath, complaining of labored breathing. He had moist breath sounds which did not clear with his cough. I called RT and we placed him back on bi pap and he is doing better, RR is down to 18 from 26 and he is now resting quietly. Sats are 100%. Pt has been essentially afebrile, with a low grade temp at 1600 of 37.2. HR has been in the 70's he is 100% V paced. BP ranges from 95-133 sys. UOP > 600cc this shift. He has had a small BM today. His k was still low, at 3.3. after his rider this am. He is receiving a 2nd rider per protocol and we will repeat k after this is complete. Pt has been awake and conversive today, asking approp questions. He is hard of hearing though. His brothers came in to visit and were good support for Jerod this am.
--- NOTE | 2016-11-15 15:46 | NUR ---
Social Work: Initial Assessment D: Per EMR review, pt is a 76 year old male admitted for Coma, LLL Pneumonia, UTI. Pt is Medicare with A[employer] Supplement; pt has no LTC insurance or VA benefits. PCP was previously Van Sutton MD but family states pt is being followed by Dr. Teresa at [facility]. DPOA is Tigre Wilkins, , . Advanced directives completed- requested copy from pt's family. No RA score entered. ENROLLED NURSE met with pt and brother at bedside. Sw role explained and contact info provided. See initial assessment. 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 Pt usees a powerchair at baseline and requires assistance with transfers. Pt is willing to return to [facility] when medically stable. Pt denies any previous HH or mcc placement. t/c to [facility]; left message informing them of pt's admission and that access has been provided. A: Pt who is a LTC resident at [facility]. P: Anticipate pt to return to [facility] when medically stable; ENROLLED NURSE t continue to follow and assist with safe discharge planning pending order by . KATEY Barger Addendum: 11/15/16 at 1552 by SANJU LEONARDO Amended: Links added.
--- NOTE | 2016-11-15 18:12 | NUR ---
Temp up to 39.1 tylenol IV ordered from pharmacy. aware
--- NOTE | 2016-11-15 19:16 | DRSVH ---
[facility] [address] [place] [address] Echocardiogram Report Name: YINKA TERRY JR Study Date: 11/15/2016 Height: 70 in Hospital Exam Location: [facility] Weight: 271 lb Gender: Male BSA: 2.4 m2 : 1940 Age: 76 yrs BP: 100/50 mmHg Reason For Study: Respiratory Arrest Ordering Physician: Performed By: Ellen March Interpretation Summary 1. Dilated left ventricle with normal wall thickness and an estimated EF of 45 to 50% 2. Moderate to severely dilated right ventricle with mildly reduced systolic function. Estimated RVSP is 34 mm Hg 3. No evidence for hemodynamically significant valvular disease Compared to the previous study, the EF is somewhat reduced. Procedure: A two-dimensional transthoracic echocardiogram with color flow and Doppler was performed. The study quality was technically difficult. Comparison is made with the echocardiogram of 09-17-16. The patient has a paced rhythm. Left Ventricle: There is normal left ventricular wall thickness. The left ventricle is dilated at 6.4 cm. The ejection fraction is estimated to be 45- 50%. There is a mild dyssynchronous contraction pattern, consistent with a conduction abnormality. Basal inferior wall hypokinesis. Diastolic function could not be accurately assessed due to paced rhythm. Right Ventricle: The right ventricle is moderate to severely dilated. There is a pacemaker lead in the right ventricle. Right ventricular systolic function is mildly reduced. Atria: The left atrium is moderately dilated. The right atrium is severely dilated. There is a catheter/pacemaker lead seen in the right atrium. The interatrial septum is intact with no evidence for an atrial septal defect. The interatrial septum appears aneurysmal. Mitral Valve: The mitral valve leaflets appear borderline thickened, but open well. There is no mitral regurgitation noted. Aortic Valve: The aortic valve is mildly calcified. The valve appears trileaflet. The calculated aortic valve area is 1.3 cm2. The aortic valve area is 1.8 centimeters squared by planimetry. The peak aortic velocity is 2.4 m/sec. The peak aortic velocity on the previous exam was 1.7 m/sec. The aortic valve mean gradient is 13 mmHg. No aortic regurgitation is present. Tricuspid Valve: The tricuspid valve leaflets are thin and pliable. There is mild tricuspid regurgitation. The right ventricular systolic pressure is estimated at 34 mmHg assuming a right atrial pressure of 15 mm Hg. Pulmonic Valve: The pulmonic valve is not well seen, but is grossly normal. There is trace pulmonic regurgitation. Great Vessels: The aortic root is mildly dilated. The ascending aorta is mildly enlarged. The IVC is dilated (diameter is greater than 2.1 cm) and it collapses less than 50% with a sniff. This suggests a high right atrial pressure of 15 mm Hg. Pericardium/ Pleura There is no pericardial effusion. There is no pleural effusion. MMode/2D Measurements & Calculations LVIDd: 6.4 cmLA dimension: 4.9 cm RA long axis: 6.4 cm LVOT diam LVIDs: 4.6 cm FS: 27.9 % LA A2 area: 30.0 cm RA area: 34.6 cm Ao root diam IVSd: 0.96 cmLA A4 area: 30.6 cm RA vol: 158.8 ml LVPWd LA length (vol): 6.7 cm RA : 66.9 ml/m Aortic Jxn : 0.8cm LA vol: 116.5 ml RVDd major: 6.0 cm asc Aorta Diam LA vol index: 49.1 ml/m IVC diam: 2.5 cm NICOLE (plan) LV horne. diameter/BSA LV sys. diameter/BSA RVD1 (basal) : 1.8 cm2 (cm/m^2): 2.7 (cm/m^2): 1.9 : 4.3 cm RVD2 (mid) : 4.3 cm Doppler Measurements & Calculations Ao V2 max MV P1/2t: 69.8 msec Med Peak E' Camilo TR max camilo : 238.3 cm/sec MVA(VTI): 4.0 cm2 : 220.3 cm/sec Ao max PG Lat Peak E' Camilo TR max PG : 22.7 mmHg : 10.4 cm/sec : 19.4 mmHg Ao mean PG PA V2 max : 12.5 mmHg : 62.7 cm/sec LVOT Max Camilo PA mean PG : 68.8 cm/sec : 0.77 mmHg NICOLE(I,D): 1.3 cm PA Accel Time sev ratio : 0.18 sec MV V2 mean MV P1/2t max camilo Ao V2 mean LV V1 max PG : 37.8 cm/sec : 171.6 cm/sec MV mean PG MVA(P1/2t): 3.2 cm2 Ao V2 VTI: 49.5 cm LV V1 VTI : 0.90 mmHg NICOLE(V,D): 1.3 cm2 : 13.9 cm MV V2 VTI : 15.4 cm PA V2 mean NICOLE indexed to BSA : 40.6 cm/sec (cm^2/m^2): 0.53 Reading Physician:07:15 PM
--- NOTE | 2016-11-15 20:39 | NUR ---
P) Cardiac Pt. MAP in the 50's, still making urine, I) Consulted with Dr. Bowie re;pressors. E) We will continue monitoring as long as pt. is not symptomatic.
[2016-11-15 21:07] LABS: Magnesium 2.3 mg/dL (1.6-2.6); Phosphorus 2.6 mg/dL (2.5-4.9)
[2016-11-15] MEDS ORDERED: Vancomycin Inj 1,750 MG in Dextrose 5% 500 ML IV SCH (23:00)
[2016-11-16] VITALS (11 sets, daily range): BP systolic 100–119; BP diastolic 43–74; PULSE 70–74; RESP 14–20; O2SAT 96–99
--- NOTE | 2016-11-16 00:48 | NUR ---
P) Fever/cardiac/respiratory Pt. continues febrile, T-max so far this shift 38.5c axillary, fever down after tylenol and passive cooling. Cardiac rhythm V-paced with and IVCD and prolonged QTc, MF PVC's, of not the pacer does not appear to sense these extra beats and sometimes fires inappropriately. Lungs with coarse breath sounds bilat, rubs and rales in bases, more adventitious sounds on the left than the right. I) Cont. to monitor, meds per 's orders, turning q2h and elevating lower extremities. E) Resting quietly, currently no c/o pain though he does c/o pain in R hip with turning. Addendum: 11/16/16 at 0536 by ESTELA MARTINEZ RN Blood cultures 2 more blood culture bottles positive for gram neg. rods, not notified as he is already being treated for this.
[2016-11-16] MEDS: Piperacillin-Tazo 3.375 Gm Inj 3.375 GM in Dextrose 5% Minibag Plus 50 ML IV SCH ×2 (01:11→07:40)
[2016-11-16 03:44] LABS: BASOPHILS % (AUTO) 0.1 % (0-3); EOSINOPHILS % (AUTO) 0.1 % (0-5); MONOCYTES % (AUTO) 9.8 % (4-12); Mean Corpuscular Hemoglobin 32.4 pg (27.0-35.0); Mean Corpuscular Volume 99.4 fL (81-100); NEUTROPHILS % (AUTO) 82.4 % (40-74); Platelet Count 172 bil/L (150-400)
[2016-11-16 04:01] LABS: INR 4.9 ratio
[2016-11-16 04:45] LABS: Magnesium 2.5 mg/dL (1.6-2.6); Phosphorus 2.9 mg/dL (2.5-4.9)
[2016-11-16] MEDS: 0.9% Sodium Chloride 1,000 ML IV SCH ×3 (05:29→20:31)
[2016-11-16] MEDS ORDERED: KCl 40 mEq/500 mL D5W(K 3 - 3.7 & Creat < 2) IV ONE (06:30)
--- NOTE | 2016-11-16 08:38 | PCM.PNMED ---
Subjective Date of Service Nov 16, 2016 Subjective Patient seen and examined at bedside wit nursing staff He spent the night on BIPAP and was hypotensive at some point . BP better this AM with systolic at 120. No chest pain. Febrile overnight. Exam Vital Signs Vital Sign - Last Date Time Temp Pulse Resp B/P Pulse Ox O2 Delivery O2 Flow Rate FiO2 11/16/16 07:41 CPAP/BIPAP 11/16/16 07:41 36.9 70 14 116/63 99 35 11/15/16 16:00 0.00 Intake and Output 11/15/16 11/15/16 11/16/16 Cumulative From/Thru 15:00 23:00 07:00 11/14/16 23:05 - 11/16/16 06:15 Intake Total 1478 ml 2391 ml 6523 ml Output Total 1300 ml 1400 ml 3605 ml Balance 178 ml 991 ml 2918 ml Intake Oral 300 ml 300 ml IV Total 1478 ml 2091 ml 6223 ml Output Urine Total 1300 ml 1400 ml 3605 ml # Voids 1 # Bowel Movements 1 2 Exam Gen : ill appearing obese male. AAO. NAD HEENT : PERRL, sclerae anicteric. On BIPAP Neck: Supple, trachea midline, no JVD, no cervical lymphadenopathy Chest: Normal respiratory effort, no use alert is remorseful. Lung : Clear bilaterally, no wheezing, no crackles but some rales Heart S1-S2 irregular rate and rhythm no murmur no gallop Abdomen: Obese, soft ,non tender, non distended, bowel sounds audible. Extremities: No edema, no calf tenderness, no cyanosis Skin: No rash, no ulcers. Neuro : Somewhat confused otherwise , non focal IVs and Medications Medications Reviewed: Medications were reviewed in detail Lab and Diagnostics Result Diagram: 11/16/16 0326 11/16/16 0326 Cardiac Echo Impressions Interpretation Summary 09/17/16 The study quality was technically difficult. A contrast injection of Definity was performed to improve assessment of LV function. The left ventricle is mildly dilated. The ejection fraction is estimated to be 50-55%. Compared to the prior exam, left ventricular function is moderately improved. The aortic valve is mildly calcified. The aortic valve is not well visualized. Leaflet mobility is moderately reduced. No significant change in LVOT velocity, consider DIAZ if clinically indicated to further evaluate AV . Assessment & Plan Jerod Wilkins is a 76 year old male with Chronic A-fib on warfarin s/p pacemaker, Coronary syndrome, previous TIA, Congestive heart failure, hypertension and SURESH who presents to [facility] emergency department via EMS with decreased consciousness and dyspnea 1. Acute Respiratory Failure. Present on admission. Persistent and ongoing -Etiology is likely due to Sepsis from Pneumonia. - Patient spent the night on BIPAP. His chest X-ray on admission is not impressive. No known history of COPD - PE is unlikely. The patient is anticoagulated with Coumadin and came in with an INR above 3 - Continue nebulizer, BIPAP PRN. - Obtain echocardiography 2 -Community Acquired Pneumonia.? Present on admission - continue Vancomycin and Zosyn IV - Possible aspiration and early stage of pneumonitis may present with normal Chest x-ay more importantly when the ie dehydration] - I will repeat his chest X-ray today 3 Severe Sepsis. Present on admission Meeting criteria with fever, tachypnea and Leukocytosis with pulmonary source of infections. Lactic acidosis - continue fluid resuscitations according to sepsis protocol - early initiation of antibiotics 4 Lactic acidosis. Present on admission Due to tissue hypoxia from sepsis - trending levels till normal 5 Acute Kidney Injury. Preset on admission Likely due to pre renal azotemia Creatinine trending down with IV Hydration. Consider discontinuation of Vancomycin 6 Acute Encephalopathy. Present on admission - high risk for delirium, avoid psychoactive if possible 7 Chronic heart failure with improvement of systolic function - holding diuretics for now - monitor closely for clinical evidence of fluid overload 8 Chronic Atrial fibrillation rate controlled currently - monitor on telemetry - Coumadin managed by Pharmacist. INR 4.0 today Patient is doing somewhat better today and is relatively stable. Blood pressure was in the lower side overnight but systolic and MAP adequate today . Continue IVF with NS @ 75 ml/hr pending chest X-ray. Continue BIPAP support. CBC, BMP , procalcitonin in am Plan of acare as above. Prognosis guarded. Patient is DNI VTE Mechanical Devices: Intermittant Pneumatic CD Resuscitation Status: Limited Interventions (DNI) Time spent 35 minutes Neymar Calvillo MD Nov 16, 2016 08:38
--- NOTE | 2016-11-16 09:49 | NUR ---
Evaluation completed. Please go to "Notes" then click on "Assessments and Notes" (bottom left corner of screen). Then select appropriate discipline tab on top of screen.
--- NOTE | 2016-11-16 10:40 | NUR ---
Evaluation completed. Please go to "Notes" then click on "Assessments and Notes" (bottom left corner of screen). Then select appropriate discipline tab on top of screen.
[2016-11-16] MEDS ORDERED: Ertapenem Inj 1,000 MG in 0.9% Sodium Chloride 50 ML IV SCH (10:50)
[2016-11-16] MEDS: Ertapenem Inj 1,000 MG in 0.9% Sodium Chloride 50 ML IV SCH (12:27)
--- NOTE | 2016-11-16 13:19 | PROG NOTE ---
[address] [address] PROGRESS NOTE PATIENT: YINKA TERRY : 1940 MR#: [id number] ADMIT: 11/15/2016 JOB ID: [id number] DATE: 11/16/2016 REQUESTING PHYSICIAN: I thank Dr. Calvillo for this timely consult. REASON FOR CONSULTATION: Gram-negative bacteremia with septic shock. HISTORY OF PRESENT ILLNESS: The patient is a complex 76-year-old gentleman well known to me from prior admissions. He currently resides at the [facility] because of debility and multiple underlying problems. He was admitted on November 15, yesterday, because of confusion and shortness of breath. The patient was not able to provide any history when he arrived in the ER, and it remains quite unclear to me what happened at [facility], but it sounds as if he was found with shortness of breath and confusion. At that time, it was stated by the family and the care home staff that he had turned blue, and so EMS arrived and found his O2 sats only in the 60s. CPAP was started, and he improved and was then brought to the emergency room where he was evaluated and subsequently admitted to the intensive care unit. Since his admission yesterday, the patient has awakened and is now back to something like his normal mental status. He tells me he is uncertain what happened at [facility] other than he had been tired perhaps earlier in the day before the events that led to his ER transfer, but otherwise he cannot supply any data. He says he was not having any fevers, chills, or sweats prior to the events yesterday, and he also denies any increased cough, shortness of breath, abdominal complaint, or dysuria, urgency, or frequency. Note that he does not have a Arana catheter at [facility], though we does have one here since he came to the ER and it was inserted at that time. PAST MEDICAL HISTORY: Extensive and complicated: 1. Organic heart disease. a. CHF. b. Coronary artery disease. c. Chronic atrial fibrillation. d. Pacer. 2. Obstructive sleep apnea. 3. Obesity. 4. Bilateral lower extremity edema with venous stasis changes. 5. Gout. 6. Benign prostatic hypertrophy. 7. Bilateral knee replacements. 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 9. Status post traumatic splenectomy. 10. Status post appendectomy. SOCIAL HISTORY: The patient is a lifelong nonsmoker who grew up in [place] and then moved [place] for most of his adult life, returning here recently. 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 FAMILY HISTORY: Negative for TB in any first or second-degree relatives. His father was a prominent local surgeon who suddenly at the age of 50 due to acute cerebrovascular process. REVIEW OF SYSTEMS: The patient tells me he has headaches which are fairly frequent and have not changed recently. No acute visual change. No sore throat, odynophagia, or dysphagia. He has a dry cough and sleep apnea which have not changed lately. No productive cough or pleuritic chest pain. No substernal chest pain. No nausea, vomiting, or diarrhea noted. No dysuria, urgency, or frequency. He states he cannot ambulate because of weakness and chronic edema in his legs which has not changed. Remainder of the review of systems is negative. PHYSICAL EXAMINATION: Reveals an afebrile gentleman, temperature 36.9, pulse 70, respiratory rate 20, blood pressure 118/59. He is saturating well on 35%. He is in no acute distress, though he is lying in the ICU bed, of course, and receiving nasal oxygen. He is awake, alert, and oriented and able to supply some history, though he has really no idea what happened that transpired to him getting readmitted. Head without trauma. Eyes without conjunctivitis, though they are both watery. Nose normal. Oral cavity: No thrush, hairy leukoplakia, or pharyngitis. Neck without adenopathy. Reasonably supple. Lungs fairly clear bilaterally. No significant rales or rhonchi are heard. Cardiac tones: Irregular rate and rhythm. Abdomen is obese, soft, and nontender. The current BMI is 39. No organomegaly can be appreciated, but it is a difficult exam. He does not have any suprapubic tenderness or inguinal adenopathy. Does have a Arana catheter draining clear yellow urine. His knees are notable for bilateral scars consistent with his history of bilateral knee replacements. Neither knee is warm or tender. His extremities are notable for 3+ edema diffusely. He has minimal peripheral pulses in both feet, but they are palpable. He has reasonable capillary refill in both feet. There is no obvious infection of the lower extremities at this point. Neurologically, he can move everything but is quite weak in the lower extremities. LABORATORY DATA: Labs include white count 23,000, platelets 172, creatinine 1.38. INR is 4.9. When he came in, it was 3.06. Urinalysis 11-50 white cells. Urine and blood are growing E. coli organism was susceptibilities pending. Urine pneumococcal and Legionella antigens are negative. A MRSA screen of the nares negative. IMAGING: Includes a chest x-ray on admission which showed no infiltrate. Brain CT showed no acute ADMINISTRATIVE ASSISTANT DATA ENTRY injury, and an abdominal CT showed really nothing except a lot of fecal material. IMPRESSION: This is a very complicated patient who I know from prior admissions. He has almost overwhelming problem list and now lives in a care home. He was admitted when he became obtunded and desaturated at the care home. It would appear that this was on the basis of sepsis due to Escherichia coli arising from the genitourinary tract. At this point, he has been receiving vancomycin and Zosyn, but now that we have positive blood cultures for Escherichia coli, I think we can modify this considerably. Because of the risk of extended-spectrum beta-lactamase Escherichia coli organisms which are now becoming widespread in our community, I think a carbapenem should be used until we have back susceptibilities on the Escherichia coli. We can drop all gram-positive coverage. RECOMMENDATIONS: 1. Will DC the vancomycin. 2. Will change the Zosyn to ertapenem. 3. This case discussed in detail with Dr. Calvillo who is the referring physician as well as Dr. Prescott of the ICU team. 4. I will continue to follow this complex patient with you.
[2016-11-16] MEDS: oxyCODONE-Acetamin 10-325 mg Tablet PO PRN (18:06)
[2016-11-16] MEDS ORDERED: Potassium Chloride 20 mEq SR Tablet PO ONE (19:25)
--- NOTE | 2016-11-16 19:34 | NUR ---
Mentation/ Diet /Oxygen: Patient A&O X3 and requesting diet on initial assessment. Swallow evaluation was completed and patient tolerated soft diet with thin liquids without report of N/V. Patient able to maintain SpO2 saturation off BiPAP. Patient was placed on 3L NC and was slowly titrated to down to 1L NC. Maintaining SpO2 mid to high 90's. Patient denied any CP, SOB or dizziness throughout shift.
[2016-11-16] MEDS ORDERED: Vancomycin Serum Trough XX ONE (22:30)
[2016-11-17] VITALS (8 sets, daily range): BP systolic 98–132; BP diastolic 60–70; PULSE 66–75; RESP 16–25; O2SAT 94–97
[2016-11-17] MEDS: oxyCODONE-Acetamin 10-325 mg Tablet PO PRN ×3 (00:03→15:56)
[2016-11-17 04:03] LABS: INR 4.34 ratio
--- NOTE | 2016-11-17 06:24 | NUR ---
Cardiac/Resp Patient did well last night on 1L NC O2, no respiratory distress, vitals stable and afebrile this shift, HR Paced 70's, Potassium replaced and AM potassium results pending, patient stated at 0600 that he hasn't slept in 30 hours and wants a sleeping pill this AM, patient stated he isn't tired though, tolerated soft diet and thin liquids without straw, 1 BM this shift, 1475ml urine output, uneventful shift, will continue to monitor.. Addendum: 11/17/16 at 0630 by TOÑO CHEEMA RN Amended: Links added.
[2016-11-17] MEDS: 0.9% Sodium Chloride 1,000 ML IV SCH (06:59)
[2016-11-17] MEDS: Ertapenem Inj 1,000 MG in 0.9% Sodium Chloride 50 ML IV SCH (08:04)
--- NOTE | 2016-11-17 11:02 | NUR ---
NUTRITION FOLLOW UP: ASSESS: 76 YO M admitted for bacteremia with septic shock. PO intake 100% X 1 meal. Pt off BiPAP. PMHx: A-fib requiring Coumadin, pacemaker placement, CAD, TIA, CHF, HTN, SURESH. DIET: Soft. PO intake 100% X [address] LABS: Reviewed. BUN 47, Cr 1.38, Glu 143, Alb 3.1 MEDICATIONS: Reviewed. Coumadin. GI: 1 BM 11/17. SKIN: Wound consult initiated related to multiple skin tears, abrasions, bruising, with a questions pressure injury on L. buttock. Evaluation pending. ANTHROPOMETRICS: Current Wt: 124.7 kg, BMI: 39.4 kg/m2. Admit wt: 123.0 kg. IBW: 75.45 kg (163% IBW) ESTIMATED NEEDS (CLASS II OBESITY): Calories: 8400-8047 kcal/day (22-25 kcal/kg IBW) Protein: 136-151 g/day (1.8-2.0 g/kg IBW) Fluid: Approx. 3075 mL (25 mL/kg BW) NUTRITION DIAGNOSIS: 1) Chewing/swallowing difficulties related to requirement for BIPAP, altered mental status, pending swallow evaluation.---IMPROVED. INTERVENTION: 1) Continue current diet per speech therapy recommendations. MONITOR/EVALUATE: PO intake, labs, wound status, GI/nutrition status. Follow per moderate nutrition risk guidelines.
--- NOTE | 2016-11-17 12:50 | NUR ---
P: Respiratory Distress I: VSS. Pt has no SOB and 1L/NC with sats 94%. 100% paced.Taking po well. Arana patent and draining light sofía urine. Percocet one tablet po for shoulder pain 01/22. Turned Q 2 hours. NS infusing without redness or swelling at the site. Large soft sticky stool. Incontinent. Wound care here and decub on coccyx with mepilex applied. Family here to visit pt. E: Stable S: Alert and oriented. Uses call light appropriately. Frequent rounding. Status decreased to PCU with Tele from CCU status.
[2016-11-17] MEDS ORDERED: Haloperidol 5 mg/mL Inj ONE (13:37)
--- NOTE | 2016-11-17 14:28 | NUR ---
Wound Note 76 yo male admitted to [facility] from [facility] with pneumonia. Pressure injury protocol is received, patient seen at bedside with nursing. Patient presents with a small stage 2 pressure injury at his right buttock that is 0.5 cm in diameter and flush with surrounding skin. Cleaned this area after clean up of large semisolid stool, covered ulcer with mepilex adhesive foam dressing and placed patient in left sidelying. Recommend nursing change this dressing PRN for soiling, frequent repositioning as patient is dependent for bed mobility.
--- NOTE | 2016-11-17 15:38 | PCM.PNMED ---
Subjective Date of Service Nov 17, 2016 Subjective Patient seen and examined at bedside . No new complaints, off BIPAP and on oxygen via nasal canula. Exam Vital Signs Vital Sign - Last Date Time Temp Pulse Resp B/P Pulse Ox O2 Delivery O2 Flow Rate FiO2 11/17/16 12:52 37.1 70 16 121/66 96 Nasal Cannula 1.00 11/16/16 09:00 35 Intake and Output 11/16/16 11/16/16 11/17/16 Cumulative From/Thru 15:00 23:00 07:00 11/14/16 23:05 - 11/17/16 05:28 Intake Total 1865 ml 1053 ml 9441 ml Output Total 1450 ml 1475 ml 6530 ml Balance 415 ml -422 ml 2911 ml Intake Oral 500 ml 200 ml 1000 ml IV Total 1365 ml 853 ml 8441 ml Output Urine Total 1450 ml 1475 ml 6530 ml # Voids 1 # Bowel Movements 0 1 3 Exam Gen : ill appearing obese male.In bed comfortably. HEENT : PERRL, sclerae anicteric. On BIPAP Neck: , no JVD,supple. Chest: Normal respiratory effort Lung : Clear bilaterally, no wheezing, no crackles Heart S1-S2 irregular rate and rhythm no murmur no gallop Abdomen: Obese, soft ,non tender, non distended, bowel sounds audible. Extremities: No edema, no calf tenderness, no cyanosis Neuro : AAO x 2. non focal , no acute deficit IVs and Medications Medications Reviewed: Medications were reviewed in detail Lab and Diagnostics Result Diagram: 11/16/16 0326 11/17/16 0610 X-Rays, CTs and MRIs abdominal CT scan reviewed : 1. Severe fecal loading throughout the colon. Please correlate with clinical data. 2. No free fluid or free air. 3. No inflammatory changes identified. 4. No definite abscess identified. Chest X-ray reviewed : No acute finding Cardiac Echo Impressions Interpretation Summary 09/17/16 The study quality was technically difficult. A contrast injection of Definity was performed to improve assessment of LV function. The left ventricle is mildly dilated. The ejection fraction is estimated to be 50-55%. Compared to the prior exam, left ventricular function is moderately improved. The aortic valve is mildly calcified. The aortic valve is not well visualized. Leaflet mobility is moderately reduced. No significant change in LVOT velocity, consider DIAZ if clinically indicated to further evaluate AV . Assessment & Plan Jerod Wilkins is a 76 year old male with Chronic A-fib on warfarin s/p pacemaker, Coronary syndrome, previous TIA, Congestive heart failure, hypertension and SURESH who presents to [facility] emergency department via EMS with decreased consciousness and dyspnea 1. Acute Respiratory Failure. Present on admission. Persistent and ongoing -Etiology is likely due to Sepsis from Pneumonia. - Improved form respiraotry standpoint. Off BIPAP today .On oxygen via nasal canula - Continue nebulizer, BIPAP PRN. - Echocardiography report reviewed :Dilated left ventricle with normal wall thickness and an estimated EF of 45 to 50% 2. Moderate to severely dilated right ventricle with mildly reduced systolic function. Estimated RVSP is 34 mm Hg 3. No evidence for hemodynamically significant valvular disease 2 -Community Acquired Pneumonia.? Present on admission Chest X-ray is negative to my interpretation/\ Repeat chest X-ray is pending 3 Severe Sepsis. Present on admission Culture grew E-coli. Patient is on Ceftriaxone after a short run of ertapenem yesterday/ 4 Lactic acidosis. Present on admission. Resolved Due to tissue hypoxia from sepsis 5 Acute Kidney Injury. Preset on admission: Improving Likely due to pre renal azotemia Creatinine trending down with IV Hydration. 6 Acute Encephalopathy. Present on admission: Improving - high risk for delirium, avoid psychoactive if possible 7 Chronic heart failure with improvement of systolic function - holding diuretics for now - monitor closely for clinical evidence of fluid overload 8 Chronic Atrial fibrillation rate controlled currently - monitor on telemetry - Coumadin managed by Pharmacist. INR 4.3 today Clinically stable and slowly improving but overall patient remained sick Plan of care as abvove. I thin he can be downgraded to PCC with telemetry . CBC, BMP , procalcitonin in am Patient is DNI VTE Mechanical Devices: Intermittant Pneumatic CD Resuscitation Status: Limited Interventions (DNI) Time spent 35 minutes Neymar Calvillo MD Nov 17, 2016 15:38
[2016-11-17] MEDS: cefTRIAXone Inj 2,000 MG in Dextrose 5% Minibag Plus 50 ML IV SCH (15:51)
--- NOTE | 2016-11-17 16:14 | DRSVH ---
PROCEDURE: X-RAY CHEST ONE VIEW, PORTABLE ([id number]) INDICATIONS: Penumonia, SOB TECHNIQUE: One view of the chest was acquired. COMPARISON: [facility], CT, CT ABD PELVIS W CON, 11/15/2016, 0:09. [facility], CR, XR CHEST 1VW (PORTABLE), 11/14/2016, 22:55. FINDINGS: Surgical changes and devices: Stable positioning of left cardiac pacer. Lungs and pleura: No pleural effusions or pneumothorax. Lungs are clear. Mediastinum: Mediastinal contours appear normal. Heart size is enlarged. Bones and chest wall: No suspicious bony lesions. Overlying soft tissues appear unremarkable. IMPRESSION: No acute cardiopulmonary disease. Dictated by: Brad REDDY Interpreted: Eric Loza MD on 11/17/2016 at 16:12 Transcribed by: MINDY on 11/17/2016 at 16:13 Approved by: Paul Loza M.D. on 11/17/2016 at 16:34
--- NOTE | 2016-11-17 21:53 | PROG NOTE ---
[address] [address] PROGRESS NOTE PATIENT: YINKA TERRY : 1940 MR#: [id number] ADMIT: 11/15/2016 JOB ID: [id number] DATE: 11/17/2016 REASON FOR FOLLOW UP: Bacteremic E. coli urinary tract infection. INTERVAL HISTORY: The patient reports he is feeling a bit better today, though he has had trouble with sleep as well as with constipation. He denies fevers, chills, or sweats. He has no new pulmonary or GI symptoms. PHYSICAL EXAMINATION: Reveals an afebrile gentleman, he was febrile to 38.4 when he came in, stayed afebrile for about 24 hours, and since has been afebrile for two days. His pulse is 70, respiratory rate 16, blood pressure 121/86, saturating well on 1 L. He is in no acute distress but he is quite lethargic, though he is able to answer questions with reasonable answers. Eyes without conjunctivitis. Oral cavity negative. Lungs fairly clear bilaterally. Abdomen is soft, nontender. No other notable abnormalities. LABORATORY STUDIES: White count still elevated at 23,000. Creatinine 1.38. Liver function tests normal. Procalcitonin 4.74. Urinalysis 11-50 white cells. Urine culture grew E. coli. Blood cultures also grew E. coli and that was from 4/4 bottles, and sputum is now growing what appears to be E. coli with susceptibilities to follow. IMAGING: Includes a chest x-ray which shows no acute pulmonary disease. The abdominal CT that was reviewed yesterday which shows fecal loading throughout the colon but no definitive abnormalities. IMPRESSION: This is a complicated patient I know from prior admissions. He has an overwhelming problem list and lives in a [place] [facility]. He was admitted after he developed desaturation and mental status changes [place] apparently on the basis of this bacteremic Escherichia coli tract infection. Yesterday, we had reduced his antibiotics from vanc and Zosyn down to ertapenem, and I think now we can further switch to ceftriaxone alone given the susceptibility pattern of this organism. Once the patient is ready for discharge he could be transitioned to oral Cipro. RECOMMENDATIONS: 1. Will switch the ertapenem to ceftriaxone. 2. Continue with ceftriaxone until he is clearly stable and put of the PCC and then he could switch to Cipro to finish a 10-14 day total course. 3. Note that when he is on Cipro will have to watch for drug interactions with the Coumadin, which will require adjustments and careful monitoring of the Coumadin dosage.
[2016-11-18] VITALS (7 sets, daily range): BP systolic 136–169; BP diastolic 68–108; PULSE 70–78; RESP 16–24; O2SAT 94–96
[2016-11-18 04:50] LABS: INR 3.68 ratio
--- NOTE | 2016-11-18 05:49 | NUR ---
Mentation/Cardiac/Resp Patient A&Ox3 but unable to state thoughts, patient very tired and he stated he has not slept for over 40 hours, "I need to get my head screwed on straight", Dr. Beatty notified and Ambien 5mg ordered, patient did not c/o of any pain this shift and fell asleep shortly after Ambien given, rested well this shift, uneventful shift, HR remains paced in the 70's with occasional PVC's, doing well on 1L NC O2, will continue to monitor.
[2016-11-18 07:19] LABS: BASOPHILS % (AUTO) 0.8 % (0-3); EOSINOPHILS % (AUTO) 0.3 % (0-5); MONOCYTES % (AUTO) 18.9 % (4-12); Mean Corpuscular Hemoglobin 32.9 pg (27.0-35.0); Mean Corpuscular Volume 101.3 fL (81-100); NEUTROPHILS % (AUTO) 66.3 % (40-74); Platelet Count 188 bil/L (150-400)
--- NOTE | 2016-11-18 08:16 | PROG NOTE ---
[address] [address] PROGRESS NOTE PATIENT: YINKA TERRY : 1940 MR#: [id number] ADMIT: 11/15/2016 JOB ID: [id number] DATE: 11/18/2016 REASON FOR FOLLOW UP: Bacteremic E. coli complicated urinary tract infection. INTERVAL HISTORY: Overnight, the patient's mental status has changed. Yesterday, he was conversational and sometimes confrontational, which is his normal mental status. He was certainly awake and alert, however, and able to offer a lucid history yesterday, and we even discussed the history of his family and other assorted topics. Today, the patient is grunting and yelling a lot, but when asked about what is going on, he is only able to speak in very short phrases, if at all, and spent much of his time grunting. He is capable of speech, however, and when he does answer questions, he indicates he has some abdominal pain, as well as perhaps some headache. He appears to deny fever and chills, but I am not certain his history is reliable this morning. He likewise denies respiratory distress and his O2 sat supports that. PHYSICAL EXAMINATION: Reveals a gentleman who is grunting and occasionally yelling out in what sounds like pain. At other times, he is more clearly awake and answers short questions sometimes appropriately. He has been afebrile through the night, but this morning is 37.7. Pulse 70, respiratory rate 24, blood pressure 153/84, and he is saturating well on 1 L. At times, he does not appear to be in distress. At other times, he clearly does. His eyes are open and he tracks normally. No conjunctivitis is noted. His oral cavity is without new abnormality. The neck seems supple. Lungs relatively clear. Cardiac tones without change. The abdomen is soft, with hyperactive bowel tones, but he complains is diffusely tender. He has a Arana catheter and he has had excellent urine output overnight. There is no change in the venous stasis type changes in the lower extremities, and certainly no indication of soft tissue infection. LABORATORIES: Were just done this morning, which I had ordered actually as there were not any recently, show white count which has dropped from the mid 20,000s, down to 9000, with a now normal diff basically except a mild monocytosis. His creatinine is 0.69, down from almost 2 when he came in a few days ago. His LFTs are normal. His albumin is 3.2. Micro studies include positive blood in urine and sputum for E. coli. This E. coli is sensitive to the ceftriaxone he is receiving. A chest x-ray done yesterday because of some possible shortness of breath, was completely clear. IMPRESSION: Overall, this patient is much improved with respect to his bacteremic complicated Escherichia coli urinary tract infection. His vital signs are quite stable and his laboratories are all rapidly returning to normal. The mental status, however, seems to have changed, and I am unsure if this could be related to the Ambien he received for sleep last night, or his high-dose Celexa he is receiving, or some other process. Reportedly, these are his baseline meds, so I am not sure why they would produce a mental status change at this time. The patient's mental status seems to wax and wane even while we are in the room, which is quite strange, and he spends a lot of time grunting. He refuses to say where he is located at this point, so we cannot assess that part of the orientation, but he does know the date interestingly. RECOMMENDATIONS: 1. Will proceed with ceftriaxone to complete a 10 day course, which could be finished at the intermediate facility. 2. If desired, we could switch at any time to Cipro, but this would require adjustments in his INR and Coumadin dosing, and note that his INR has been consistently too high anyway. 3. CT scan of the brain might be considered, though he is not appearing to have a bleed in that he can move all four extremities and, at times, seems fairly awake and just moments later seems in a very odd mental state. 4. I plan to discuss this case shortly with Dr. Calvillo.
[2016-11-18] MEDS: 0.9% Sodium Chloride 1,000 ML IV SCH ×2 (08:29→11:49)
--- NOTE | 2016-11-18 09:06 | DRSVH ---
PROCEDURE: CT BRAIN WITHOUT CONTRAST ([id number]) INDICATIONS: Acute altered mental status. Assess for stroke. TECHNIQUE: Noncontrast 4.5 mm thick angled axial sections acquired from the foramen magnum to the vertex, with c oronal reformats. COMPARISON: None. FINDINGS: Image quality: Limited by patient motion artifact. CSF spaces: Basal cisterns are patent. No extra-axial fluid collections. The ventricles are symmet jacklyn in size and shape. Brain: No intracranial bleeds or masses. There is cerebral volume loss for age, with resultant vent ricular and sulcal prominence. There are periventricular and deep white matter chronic small vessel ischemic changes. There is intracranial internal carotid artery and vertebral artery atherosclerosis . Skull and face: Calvarium and visualized facial bones appear intact, without suspicious lesions. Sinuses: Small mucous retention cyst versus polyps noted in the maxillary sinuses. The mastoids are c lear. IMPRESSION: No acute intracranial disease process. Dictated by: Teena De La Fuente MD, PhD on 11/18/2016 at 9:02 Approved by: Teena De La Fuente MD, PhD on 11/18/2016 at 9:04
--- NOTE | 2016-11-18 15:18 | PCM.PNMED ---
Subjective Date of Service Nov 18, 2016 Subjective The patient is able to monitor simple answers to questions intermittently but not really provide any helpful subjective review of systems. Overnight there is a concern for worsening mental status. Exam Vital Signs Vital Sign - Last Date Time Temp Pulse Resp B/P Pulse Ox O2 Delivery O2 Flow Rate FiO2 11/18/16 12:14 37.5 78 143/77 95 Nasal Cannula 1.00 11/18/16 09:24 24 11/16/16 09:00 35 Intake and Output 11/17/16 11/17/16 11/18/16 Cumulative From/Thru 15:00 23:00 07:00 11/14/16 23:05 - 11/18/16 06:46 Intake Total 1732 ml 900 ml 92711 ml Output Total 1750 ml 8280 ml Balance -18 ml 900 ml 3793 ml Intake Oral 840 ml 1840 ml IV Total 892 ml 900 ml 72418 ml Output Urine Total 1750 ml 8280 ml # Voids 1 # Bowel Movements 1 4 Exam Awake, monitoring. Follow simple commands. Conjugate gaze. Moves arms and legs to command. Mitral pupils. Anicteric sclera. Lungs are clear with normal rate and effort Heart is regular without murmur gallop or rub Abdomen soft nontender, flat Extremities are free of edema. Skin is free of rash or lesions. IVs and Medications Medications Reviewed: Medications were reviewed in detail Lab and Diagnostics Result Diagram: 11/18/16 0400 11/18/16 0400 X-Rays, CTs and MRIs abdominal CT scan reviewed : 1. Severe fecal loading throughout the colon. Please correlate with clinical data. 2. No free fluid or free air. 3. No inflammatory changes identified. 4. No definite abscess identified. Chest X-ray reviewed : No acute finding Cardiac Echo Impressions Interpretation Summary 09/17/16 The study quality was technically difficult. A contrast injection of Definity was performed to improve assessment of LV function. The left ventricle is mildly dilated. The ejection fraction is estimated to be 50-55%. Compared to the prior exam, left ventricular function is moderately improved. The aortic valve is mildly calcified. The aortic valve is not well visualized. Leaflet mobility is moderately reduced. No significant change in LVOT velocity, consider DIAZ if clinically indicated to further evaluate AV . Assessment & Plan Jerod Wilkins is a 76 year old male with Chronic A-fib on warfarin s/p pacemaker, Coronary syndrome, previous TIA, Congestive heart failure, hypertension and SURESH who presents to [facility] emergency department via EMS with decreased consciousness and dyspnea 1. Acute Respiratory Failure. Present on admission. Improving. -Probable acute systolic heart failure, improved. - Improved form respiraotry standpoint. Off BIPAP today .On oxygen via nasal canula - Continue nebulizer, BIPAP PRN. - Echocardiography report reviewed :Dilated left ventricle with normal wall thickness and an estimated EF of 45 to 50% 2. Moderate to severely dilated right ventricle with mildly reduced systolic function. Estimated RVSP is 34 mm Hg 3. No evidence for hemodynamically significant valvular disease 2. Complicated urinary tract infection, Escherichia coli. POA. This is improving on ceftriaxone for a 10 day course per infectious disease. 3 Severe Sepsis. Present on admission and improved. Patient does have Escherichia coli bacteremia. Source is kidney and bladder infection. Culture grew E-coli. Patient is on Ceftriaxone after a short run of ertapenem yesterday/ 4 Lactic acidosis. Present on admission. Resolved Due to tissue hypoxia from sepsis 5 Acute Kidney Injury. Preset on admission: Improving Likely due to pre renal azotemia Creatinine trending down with IV Hydration. Continue to follow clinically. 6 Acute Encephalopathy. Present on admission: Stable to improving. - high risk for delirium, avoid psychoactive if possible 7 Chronic systolic heart failure, POA. - holding diuretics for now - monitor closely for clinical evidence of fluid overload 8 Chronic Atrial fibrillation, POA and stable. Warfarin per pharmacy. Over anticoagulated today, will hold dose tonight. rate controlled currently - monitor on telemetry - Coumadin managed by Pharmacist. INR 4.3 today Patient is DNI VTE Mechanical Devices: Intermittant Pneumatic CD Resuscitation Status: Limited Interventions (DNI) Robinson Avendano MD Nov 18, 2016 15:18
[2016-11-18] MEDS: cefTRIAXone Inj 2,000 MG in Dextrose 5% Minibag Plus 50 ML IV SCH (16:04)
--- NOTE | 2016-11-18 18:26 | NUR ---
Mentation, Head CT, Multidisciplinary Communication 0730 - Checked on him during change of shift with the package sealer nurse. 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 Per package sealer nurse, he had been alert, oriented, and "ornery" yesterday night. He had been given Ambien which helped him sleep all night long. Dr. Flynn came in the room and noted the change in his mentation as well. He said he'd ordered some labs and to contact the Hospitalist for a brain CT for possible stroke. [phone] - Paged the [facility] Hospitalist's pager. [phone] - Had not heard back and so paged again. Dr. Amaya called back saying she was covering for Dr. Avendano temporarily. Reported his mentation changes and asked if she wanted a CT ordered. She said she'd be right down to assess him. 0810 - Dr. Alexandra came for Dr. Amaya and assessed him. He ordered a CT. 08 - Called the CT department and asked when they would be coming to get him. They said the order had not been made STAT, but upon finding out what the CT was for changed the order and sent a transporter up quickly. 0840 - He was taken off of telemetry per Dr. Alexandra's verbal orders for the CT scan. He left [facility] [address] to go get his CT scan completed. 0900 - He returned to [facility] and was settled back into the room. Dr. Avendano came to see him. 0930 - Spoke about his condition and care with Dr. Avendano and the rest of the multidisciplinary care team during morning rounds. Dr. Avendano said that the CT scan was negative for a stroke and he wondered if the Ambien might be causing some of his confusion. He said he would discontinue it. Asked Dr. Avendano if he wanted him to receive Coumadin since his INR was 3.68. He said to ask the Pharmacy as it was Pharmacy regulated. 1230 - Spoke to Pharmacist Giovanni Cho about his Coumadin. He said that he only ordered a small dose of 1 mg as he didn't want his INR to drop significantly like it had begun to since yesterday. 1630 - Spoke to Tigre (his brother) about his condition and care as he had called inquiring. He thanked this nurse for taking the time to update him. Care continues.
[2016-11-18] MEDS ORDERED: ZOLPIDEM TARTRATE 5 MG PO SCH (21:00)
[2016-11-19] VITALS (10 sets, daily range): BP systolic 112–162; BP diastolic 66–97; PULSE 70–85; RESP 15–23; O2SAT 94–97
[2016-11-19] MEDS: 0.9% Sodium Chloride 1,000 ML IV SCH (01:11)
--- NOTE | 2016-11-19 01:37 | NUR ---
P) Mentation Pt. with a very strange affect, often grunting and seeming incapable of speech but speaks in full sentences when angry, such as when we tried to obtain a blood gas which he refused vehemently. When he is not angry he will start a sentence and then stop talking mid word or make a garbled sound, or simply stare at you. Became aggravated and grabbed my arm when I tried to take his temperature. Moods very labile. I)Continue active listening meds per 's orders, of note, he has not recieved any narcotics, sedatives or Benzo's since yesterday. E) Currently resting quietly after ice cream snack.
[2016-11-19 04:36] LABS: INR 4.51 ratio
--- NOTE | 2016-11-19 06:16 | NUR ---
P) Fever Pt. had a low grade temp initially 37.8c axillary. I) Passive cooling measures. E) Temp returned to normal. Addendum: 11/19/16 at 0619 by ESTELA MARTINEZ RN was normal at 0000 but went back up to 37.6c at 0400.
--- NOTE | 2016-11-19 08:44 | PROG NOTE ---
[address] [address] PROGRESS NOTE PATIENT: YINKA TERRY : 1940 MR#: [id number] ADMIT: 11/15/2016 JOB ID: [id number] DATE: 11/19/2016 REASON FOR FOLLOWUP: Bacteremic complicated urinary tract infection due to E. coli. INTERVAL HISTORY: The patient continues to have a mental status which is quite odd. He grunts at times and other times he is awake and will answer questions, but refuses to answer questions about where he is, what the date is and so forth. It is unclear if he is doing this because he finds the questions beneath his level or simply cannot answer them. He does answer questions about the distant past such as his family history without difficulty. This morning, the patient refuses really to participate in discussion of his current symptoms, and thus, I am unable to assess whether he is having subjective fevers or shortness of breath. PHYSICAL EXAMINATION: Reveals a gentleman who is intermittently quarreling with the nursing staff about repositioning and other issues. At times, he is grunting and appears altered, and other times he responds to questions but refuses specifically to answer questions about orientation. His temperature is 37.1 now, pulse 85, respiratory rate 21, blood pressure has been 147/85, saturating well on 1 L. In no acute distress as far as I can tell. Eyes without conjunctivitis. Lungs fairly clear. Cardiac tones without new murmur. Abdomen soft and nontender. No flank tenderness. He has a Arana catheter. LABORATORIES: Include a white count done yesterday 9200. Creatinine yesterday 0.69. I do not see any labs from today. Micro studies include blood, sputum and urine, all of which grew an E. coli which was sensitive to ceftriaxone he is receiving. A brain CT, yesterday was negative. Chest x-ray the day before that was normal. IMPRESSION: This patient seems improved from an Infectious Disease point of view with respect to his bacteremic complicated Escherichia coli urinary tract infection. His vital signs are stable and his laboratories have been returning to normal, but his mental status is quite unusual and different than on many prior admissions when I have had the chance to see this patient. It would appear that he has an encephalopathy, but the cause remains unclear and I wonder if this could be medication related, as I found no electrolyte or structural abnormalities to explain this. RECOMMENDATIONS: 1. I would continue with ceftriaxone through November 25, and I have written a stop date for that. 2. We could also switch the patient to Cipro, but this may further complicate his INR and Coumadin dosing. Note that his INR continues to run about 4. 3. Will continue to follow this patient with you while he is here in the hospital, at least in the short run. 4. I have ordered a procalcitonin for tomorrow morning.
--- NOTE | 2016-11-19 11:14 | PCM.PNMED ---
Subjective Date of Service Nov 19, 2016 Subjective Patient monitors. Not really able to answer any questions intelligibly. ROS subjective not obtainable. No overnight events noted. Exam Vital Signs Vital Sign - Last Date Time Temp Pulse Resp B/P Pulse Ox O2 Delivery O2 Flow Rate FiO2 11/19/16 10:43 72 11/19/16 07:53 37.1 21 162/87 97 Nasal Cannula 1.00 11/16/16 09:00 35 Intake and Output 11/18/16 11/18/16 11/19/16 Cumulative From/Thru 15:00 23:00 07:00 11/14/16 23:05 - 11/19/16 06:15 Intake Total 1007 ml 2111 ml 77779 ml Output Total 1450 ml 1750 ml 42316 ml Balance -443 ml 361 ml 3711 ml Intake Oral 200 ml 1218 ml 3258 ml IV Total 807 ml 893 ml 29794 ml Output Urine Total 1450 ml 1750 ml 45019 ml # Voids 1 # Bowel Movements 4 Exam Awake, moderate. Conjugate gaze. Symmetric pupils. Wiggles all toes and fingers when asked to. Anicteric sclera. Lungs are clear with normal rate and effort Heart is irregular without murmur gallop or rub Abdomen soft nontender, flat Extremities are notable for 1-2+ edema. Skin is free of rash or lesions. IVs and Medications Medications Reviewed: Medications were reviewed in detail Lab and Diagnostics Result Diagram: 11/18/16 0400 11/18/16 0400 X-Rays, CTs and MRIs abdominal CT scan reviewed : 1. Severe fecal loading throughout the colon. Please correlate with clinical data. 2. No free fluid or free air. 3. No inflammatory changes identified. 4. No definite abscess identified. Chest X-ray reviewed : No acute finding Cardiac Echo Impressions Interpretation Summary 09/17/16 The study quality was technically difficult. A contrast injection of Definity was performed to improve assessment of LV function. The left ventricle is mildly dilated. The ejection fraction is estimated to be 50-55%. Compared to the prior exam, left ventricular function is moderately improved. The aortic valve is mildly calcified. The aortic valve is not well visualized. Leaflet mobility is moderately reduced. No significant change in LVOT velocity, consider DIAZ if clinically indicated to further evaluate AV . Assessment & Plan Jerod Wilkins is a 76 year old male with Chronic A-fib on warfarin s/p pacemaker, Coronary syndrome, previous TIA, Congestive heart failure, hypertension and SURESH who presents to [facility] emergency department via EMS with decreased consciousness and dyspnea 1. Acute Respiratory Failure, with hypoxia. Acute on chronic systolic heart failure.. Present on admission. Improving. -Probable acute systolic heart failure, improved. - Improved form respiraotry standpoint. Off BIPAP today .On oxygen via nasal canula - Continue nebulizer, BIPAP PRN. - Echocardiography report reviewed :Dilated left ventricle with normal wall thickness and an estimated EF of 45 to 50% 2. Moderate to severely dilated right ventricle with mildly reduced systolic function. Estimated RVSP is 34 mm Hg 3. No evidence for hemodynamically significant valvular disease No problems overnight. We will stop the ceiling. The patient still is somewhat hypervolemic. 2. Complicated urinary tract infection, Escherichia coli. POA. This is improving on ceftriaxone for a 10 day course per infectious disease. 3 Severe Sepsis and Escherichia coli septicemia. Present on admission and improved. Patient does have Escherichia coli bacteremia. Source is kidney and bladder infection. Culture grew E-coli. Patient is on Ceftriaxone after a short run of ertapenem yesterday/ 4 Lactic acidosis. Present on admission. Resolved Due to tissue hypoxia from sepsis 5 Acute Kidney Injury.t Prese on admission: Resolved Likely due to pre renal azotemia Creatinine improved, will stop hydration. 6 Acute Encephalopathy. Present on admission: Active. - high risk for delirium, avoid psychoactive if possible 7 Chronic systolic heart failure, POA. - holding diuretics for now - monitor closely for clinical evidence of fluid overload 8 Chronic Atrial fibrillation, POA and stable. Warfarin per pharmacy. Over anticoagulated today, will hold dose tonight. rate controlled currently - monitor on telemetry - Coumadin managed by Pharmacist. INR 4.3 today Patient is DNI Discharge in several days pending clinical progress. He still has a deep encephalopathy. VTE Mechanical Devices: Intermittant Pneumatic CD Resuscitation Status: Limited Interventions (DNI) Robinson Avendano MD Nov 19, 2016 11:14
--- NOTE | 2016-11-19 11:33 | NUR ---
PT NOTE: Patient is at baseline for mobility of total assist and is W/C bound. Patient is discharged from PT caseload.
--- NOTE | 2016-11-19 12:03 | NUR ---
Confusion/angry behavior Patient remained confused. Unable/unwilling to answer questions about place /time /persona. When asked if he knew when he was patient replied: I do but nothing be on that. When continue to ask questions patient became agitated and effuse to answer- MD was in the room during that time and aware of patients response/behavior. Patient was incontinent of stool this morning. Patient was angry when turned on his side to be shook up. Patient was making tight fists at care givers and resisted turning. Patients attention was redirected and he was able to calm down. However during hygiene care he express that he rather be left alone and did not care that he was dirty- MD aware- frequent rounds/assessment.
--- NOTE | 2016-11-19 13:09 | NUR ---
FLORINDA Signed at bedside by brother KATEY Patrick
--- NOTE | 2016-11-19 13:10 | NUR ---
Social Work Note: Continued Discharge Planning Data& Assessment: EMR reviewed. SW met with pt and pt brother at bedside to check in and assess for any unmet needs. Per MD pt is not medically ready for discharge at this time. Pt is not at his baseline mentation. Pt brother Jose ([phone]) was at bedside and confirmed discharge plan to return to [facility] when medically ready. SW also checked in with pt brother Jeremy ([phone]) via phone call. Pt brothers deny any needs at this time. SW to continue to follow. Plan: Anticipated discharge back to [facility] as a technician terminal and repeater care pt when medically ready. Pt brothers deny any needs at this time. SW to continue to follow. KATEY Etienne
[2016-11-19] MEDS: cefTRIAXone Inj 2,000 MG in Dextrose 5% Minibag Plus 50 ML IV SCH (14:40)
[2016-11-19] MEDS: oxyCODONE-Acetamin 10-325 mg Tablet PO PRN (20:21)
[2016-11-20] VITALS (7 sets, daily range): BP systolic 114–161; BP diastolic 71–91; PULSE 69–76; RESP 17–24; O2SAT 93–97
--- NOTE | 2016-11-20 02:09 | NUR ---
Pain/Activity Pt grimaces when turned and repositioned, feldt score 8. Given percocet 10/325mg po prn. Meds helpful with pain, vital signs stable, weaned off 02, on RA sp02> 94%. Encouraged frequent turns Q2h.
[2016-11-20 04:12] LABS: EOSINOPHILS % (AUTO) 1.9 % (0-5); MONOCYTES % (AUTO) 21.5 % (4-12); Mean Corpuscular Hemoglobin 32.4 pg (27.0-35.0); Mean Corpuscular Volume 101.2 fL (81-100); NEUTROPHILS % (AUTO) 51.1 % (40-74)
[2016-11-20 04:20] LABS: INR 2.48 ratio
[2016-11-20 04:36] LABS: Platelet Count 208 bil/L (150-400)
--- NOTE | 2016-11-20 08:48 | PROG NOTE ---
[address] [address] PROGRESS NOTE PATIENT: YINKA TERRY : 1940 MR#: [id number] ADMIT: 11/15/2016 JOB ID: [id number] DATE: 11/20/2016 INFECTIOUS DISEASE FOLLOWUP NOTE: REASON FOR FOLLOWUP: Bacteremic complicated E. coli urinary tract infection. INTERVAL HISTORY: The patient remains a bit of a difficult historian and it is not clear to me whether or not he has some ongoing encephalopathy. This morning he is awake and seems fully interactive but he tells me that he is continuing to have fevers, chills, some shortness of breath, malaise and is uncertain as to whether or not he is better than when he came in. He does not have abdominal pain and currently has a Arana catheter, so he has no urinary complaints at this juncture. PHYSICAL EXAMINATION: Reveals a comfortable appearing gentleman who looks much better than when he came in. He has been afebrile for 4-1/2 days by our measures. His temperature currently 37, pulse 76, respiratory rate 18, blood pressure 134/77. He is saturating well on room air. Examination of the mental status reveals him to be oriented and able to answer questions but he sometimes pauses for a very long time before answering questions and sometimes the answers are surprising in that he, for example, says he has ongoing fevers and chills that are not better when he came in when, in fact, we have objective evidence that they are. Eyes without conjunctivitis. Lungs clear. Cardiac tones without new murmur. Abdomen entirely soft and nontender. He has a Arana catheter. It is draining large amounts of clear yellow urine. LABORATORIES: Include white count 9200 today. His left shift that he had when he came in has completely resolved. His procalcitonin that was 4.75 just a couple of days ago is down to 0.29. Creatinine 0.69. Blood, urine and sputum grew an E. coli, which was very susceptible to ceftriaxone. IMPRESSION: Objectively, I think the patient is getting steadily better with respect to his complicated bacteremic Escherichia coli urinary tract infection. His vital signs are stable, and his procalcitonin, elevated white count and left shift of the white count are really completely resolved. He seems to have a bit of residual encephalopathy in which I am hoping will clear in the coming days. RECOMMENDATIONS: 1. I would continue ceftriaxone through November 25 and have written a stop date for that. 2. I suspect the patient will be returning to a prison facility, and he could simply receive the ceftriaxone through a peripheral IV. 3. To simplify his management he could be switched to oral Cipro to finish his therapy through November 25 but if that is done, his INR will need to be very closely watched, as it has been problematic already in terms of over-anticoagulation. 4. Infectious Disease will go ahead and sign off on this case. Note that I will be out of town the next three days, returning on Thursday, November 24, and I suspect the patient will be gone by then but should there be any questions or problems, do not hesitate to call me.
[2016-11-20] MEDS: oxyCODONE-Acetamin 10-325 mg Tablet PO PRN ×2 (09:02→17:49)
--- NOTE | 2016-11-20 10:49 | PCM.PNMED ---
Subjective Date of Service Nov 20, 2016 Subjective He is doing well today. Much more awake. He has some abdominal cramping. He denies nausea or diarrhea. He also denies any chest pain or dyspnea. He knows where he is. No overnight events Exam Vital Signs Vital Sign - Last Date Time Temp Pulse Resp B/P Pulse Ox O2 Delivery O2 Flow Rate FiO2 11/20/16 09:06 37.4 76 17 161/91 95 Room Air 11/19/16 15:34 1.00 11/16/16 09:00 35 Intake and Output 11/19/16 11/19/16 11/20/16 Cumulative From/Thru 15:00 23:00 07:00 11/14/16 23:05 - 11/20/16 06:09 Intake Total 2157 ml 100 ml 88052 ml Output Total 1850 ml 1500 ml 82191 ml Balance 307 ml -1400 ml 2618 ml Intake Oral 1600 ml 100 ml 4958 ml IV Total 557 ml 11779 ml Output Urine Total 1850 ml 1500 ml 89093 ml # Voids 1 # Bowel Movements 2 6 Exam Alert and oriented -3, no distress. Speech is much more clear. He is able to state where he is and time. Anicteric sclera. Lungs are clear with normal rate and effort Heart is regular without murmur gallop or rub Abdomen soft nontender, flat. Minimal tenderness with palpation. Extremities are free of edema. Skin is notable for many ecchymosis over the arms. IVs and Medications Medications Reviewed: Medications were reviewed in detail Lab and Diagnostics Result Diagram: 11/20/16 0320 11/18/16 0400 X-Rays, CTs and MRIs abdominal CT scan reviewed : 1. Severe fecal loading throughout the colon. Please correlate with clinical data. 2. No free fluid or free air. 3. No inflammatory changes identified. 4. No definite abscess identified. Chest X-ray reviewed : No acute finding Cardiac Echo Impressions Interpretation Summary 09/17/16 The study quality was technically difficult. A contrast injection of Definity was performed to improve assessment of LV function. The left ventricle is mildly dilated. The ejection fraction is estimated to be 50-55%. Compared to the prior exam, left ventricular function is moderately improved. The aortic valve is mildly calcified. The aortic valve is not well visualized. Leaflet mobility is moderately reduced. No significant change in LVOT velocity, consider DIAZ if clinically indicated to further evaluate AV . Assessment & Plan Jerod Wilkins is a 76 year old male with Chronic A-fib on warfarin s/p pacemaker, Coronary syndrome, previous TIA, Congestive heart failure, hypertension and SURESH who presents to [facility] emergency department via EMS with decreased consciousness and dyspnea 1. Acute Respiratory Failure, with hypoxia. Resolved. -Probable acute systolic heart failure, improved. - Improved form respiraotry standpoint. Off BIPAP today .On oxygen via nasal canula - Continue nebulizer, BIPAP PRN. - Echocardiography report reviewed :Dilated left ventricle with normal wall thickness and an estimated EF of 45 to 50% 2. Moderate to severely dilated right ventricle with mildly reduced systolic function. Estimated RVSP is 34 mm Hg 3. No evidence for hemodynamically significant valvular disease 2. Complicated urinary tract infection, Escherichia coli. POA. Dramatically improving, ceftriaxone and told 10 days. We will ask his nursing facility if they can do this they are. If so possible discharge tomorrow, November 21. 3 Severe Sepsis and Escherichia coli septicemia. Present on admission and resolved.. Patient does have Escherichia coli bacteremia. Source is kidney and bladder infection. Culture grew E-coli. Patient is on Ceftriaxone after a short run of ertapenem yesterday/ 4 Lactic acidosis. Present on admission. Resolved Due to tissue hypoxia from sepsis 5 Acute Kidney Injury.t Prese on admission: Resolved Likely due to pre renal azotemia Creatinine improved, will stop hydration. 6 Acute Encephalopathy. Present on admission: Dramatically improved over last 24 hours.. - high risk for delirium, avoid psychoactive if possible 7 Chronic systolic heart failure, POA and now stable. - holding diuretics for now - monitor closely for clinical evidence of fluid overload 8 Chronic Atrial fibrillation, POA and stable. Warfarin per pharmacy. Over anticoagulated today, will hold dose tonight. rate controlled currently - monitor on telemetry - Coumadin managed by Pharmacist. INR 4.3 today Patient is DNI Discharge in several days pending clinical progress. He still has a deep encephalopathy. VTE Mechanical Devices: Intermittant Pneumatic CD Resuscitation Status: Limited Interventions (DNI) Robinson Avendano MD Nov 20, 2016 10:49
--- NOTE | 2016-11-20 11:54 | PCM.PHAPRO ---
Progress Unresponsive WARFARIN Indication AFIB Home dose 2.5mg daily x 5mg Mo,Fr Admit INR 3.06 Date 2-Miah 3-Miah 4-Miah 5-Miah 6-Miah 7-Miah 8-Miah 9-Miah Date 10-Miah INR 3.06 3.29 4.90 4.34 3.68 4.51 2.48 Warf Dose ? HOLD HOLD HOLD 1MG HOLD 1MG X1 o/ INR descended two points. a/ Warfarin intolerance possibly related to heart failure decompensation - now improving. p/ Give 2mg today and follow Jeff Real Pharm D Nov 20, 2016 11:54
--- NOTE | 2016-11-20 13:37 | NUR ---
NUTRITION FOLLOW UP: ASSESS: 76 YO M admitted for bacteremia with septic shock. He has been experiencing increased confusion and agitation likely related to UTI. He is on a soft diet with 1:1 feeding but PO has been poor at ~35% of meals. No reported n/v but pt does report some abdomen pain. There is a large discrepancy in pt's wt. Pt's wt today is recorded at 155kg, his wt 11/19 was 117kg and admit wt was 123kg. Question the accuracy of today's wt. PMHx: A-fib requiring Coumadin, pacemaker placement, CAD, TIA, CHF, HTN, SURESH. DIET: Soft. PO intake 0-100%. PO avg x5 days=35% LABS: Reviewed. Senior Product Engineer .69, alb 3.2 MEDICATIONS: Reviewed. Coumadin. GI: 2 BM 11/19 SKIN: small stg 2 PU on buttock ANTHROPOMETRICS: Current Wt: 117kg, BMI: 37 kg/m2. Admit wt: 123.0 kg. IBW: 75.45 kg Wt on 11/20 recorded as 155kg- question the accuracy of this wt. Will continue to monitor wt trends ESTIMATED NEEDS: BMI, wounds Calories: 2575-2925kcal/day (22-25kcal/kg) Protein: 90-135g/day (1.2-1.8g/kg IBW) NUTRITION DIAGNOSIS: 1) Chewing/swallowing difficulties related to requirement for BIPAP, altered mental status, pending swallow evaluation.---IMPROVED. 2) Inadequate oral intake related to AMS as evidence by PO avg 35% and increased confusion/agitation INTERVENTION: 1) Will add Ensure on L tray. 2) Continue to encourage PO intake w/1:1 feedings 3) Will continue to monitor wt trends as today's wt does not seem accurate MONITOR/EVALUATE: PO intake, labs, wound status, GI/nutrition status. Follow per moderate nutrition risk guidelines.
--- NOTE | 2016-11-20 14:45 | NUR ---
Spoke with Amanda Treat director utilization management at [facility] and they can accept the patient with the IV Ceftriaxone. Updated CORRECTIONAL THERAPY TEACHER
[2016-11-20] MEDS ORDERED: 0.9% Sodium Chloride 250 ML ONE (15:05)
[2016-11-20] MEDS: cefTRIAXone Inj 2,000 MG in Dextrose 5% Minibag Plus 50 ML IV SCH (15:11)
--- NOTE | 2016-11-20 15:45 | NUR ---
Social Work: Readiness for Discharge/Transfer floors D: Pt discussed in am rounds. Pt is not yet medically stable for discharge however is anticipated to be ready for discharge tomorrow pending [facility] can accept the patient back with IV ABX. MAKE UP OPERATOR HELPER spoke with Amanda Doshi, [facility] director power, who confirms that they can accept the patient with IV ABX. VALET CASHIER met with patient at bedside to confirm discharge plan and assess for unmet needs. 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 He has no concerns about discharge. Per production operator, Pt is being transferred to [facility] Room 3019. A: Pt who uses a power chair at baseline and will require group home for IV ABX. P: Anticipate pt to discharge back to [facility] when medically stable; VALET CASHIER to continue to follow. KATEY Barger
--- NOTE | 2016-11-20 15:48 | NUR ---
Pain/Activity Pt reported 8/10 back pain; percocet 10/325mg given, effective relief. Pt continuously refuses care, refuses to turn despite education. Pt gets very tense, balls up fists appears angry when asked/encouraged to turn. This RN and SENIOR CLINICIAN gave pt bed bath, unable to evaluate or wash backside 2/2 pt adamant refusal. MD orders received to d/c tele and transfer [place] [facility] Tele d/c'd. Report given to Elvis Ragland RN.
--- NOTE | 2016-11-20 19:46 | NUR ---
Transfer From CCU Report received from Verito Newman RN in CCU. Pt slide transferred to bed and brought up to unit. Pt reports sharp lower back pain 8/. Given PRN Oxycodone. Pain not resolved or changed. Pt denies SOB but exhibits gruntal breathing - CPOX in place satting in high 97% on RA. Plan of care on board/pt updated.
[2016-11-21 05:11] VITALS: BP 127/79; PULSE 69; RESP 20; O2SAT 97
--- NOTE | 2016-11-21 06:15 | NUR ---
Activity Pt refusing turns this shift. When woke pt for vitals and assessment pt stating "you woke me up for this?" Pt sleeping for remainder of shift. Arana draining sofía urine. Pt refusing to turn to get excess sheets out from under him this AM. Call light within reach, frequent rounding.
[2016-11-21 06:51] LABS: INR 2.4 ratio
[2016-11-21] MEDS: oxyCODONE-Acetamin 10-325 mg Tablet PO PRN (09:00)
[2016-11-21 09:32] LABS: Magnesium 1.8 mg/dL (1.6-2.6)
--- NOTE | 2016-11-21 10:25 | NUR ---
Social Work: Brief Note EXPLOSIVE ORDNANCE MANAGER spoke with pt's RN who states pt not able to transport back to [facility] via wheelchair van. UR specialist reviewed EMR with EXPLOSIVE ORDNANCE MANAGER. BLS transportation recommended from EXPLOSIVE ORDNANCE MANAGER. EXPLOSIVE ORDNANCE MANAGER will discuss with MD and await BLS order for day of discharge. KATEY Adorno
--- NOTE | 2016-11-21 11:34 | PCM.PHAPRO ---
Progress Unresponsive WARFARIN DOSING PER PHARMACY RPh NTV RTM RTM GSF GSF GSF GSF DFF Date 2-Miah 3-Miah 4-Miah 5-Miah 6-Miah 7-Miah 8-Miah 9-Miah INR 3.06 3.29 4.90 4.34 3.68 4.51 2.48 2.4 INR change 0.23 1.61 -0.56 -0.66 0.83 -2.03 -0.08 Warf Dose ? HOLD HOLD HOLD 1MG HOLD 1MG X1 1 A/P -Therapeautic INR following previous held doses. Very sensitive to minute changes. -Will dose with warfarin 1 mg today which is significantly lower than home regimen due to previous levels. Pharmacy ill continue to monitor Tunde Reyes, PharmTunde Vera Nov 21, 2016 11:34
[2016-11-21 13:22] VITALS: BP 118/80; PULSE 71; RESP 20; O2SAT 97
--- NOTE | 2016-11-21 14:27 | NUR ---
Activity/Mentation Patient refusing Q2 turns. Refusing full physical assessment. Refused breakfast-then ate 50% with excessive encouragement. Refused lunch. Patient has delayed verbal responses. Losses track of what he is saying-difficulty completing sentences. Rated pain as 3800-but was unable to say where his pain was located. At times patient will look at speaker, but will not answer or respond, then will use his hand to motion for speaker to "go away". Addendum: 11/21/16 at 1953 by BETTY LE RN Patient is missing a hearing aid. Reports it was in a denture cup when in CCU. No hearing aid found in room on [facility] CCU charge contacted-searching. Patient has another hearing aid and a wallet in the safe.
[2016-11-21] MEDS: cefTRIAXone Inj 2,000 MG in Dextrose 5% Minibag Plus 50 ML IV SCH (15:07)
--- NOTE | 2016-11-21 21:07 | NUR ---
BEHAVIOR FRICTION PAINT MACHINE TENDER and RN went in room at 2100 to assess and check VS. FRICTION PAINT MACHINE TENDER asked to check VS, pt replied "No." RN asked to assess and check IV, pt replied "No." Pt said nothing else. RN asked if pt needed anything else at this time, pt replied "No." Will try again later and continue hourly rounding. Addendum: 11/21/16 at 2233 by GISSELL OATES RN Tried again to get BP and assess. Pt continued to say "No, I said no." Cpox is applied, hourly rounding. Addendum: 11/22/16 at 0548 by GISSELL OATES RN Pt refused care all night, barely allowing RN to change cpox on finger. Breathing noted to sound wet, pt on RA at 94% with no complaints.
[2016-11-21 22:33] VITALS: PULSE 70; RESP 18; O2SAT 94
--- NOTE | 2016-11-21 23:27 | PCM.PNMED ---
Subjective Date of Service Nov 21, 2016 Subjective Patient has a difficult time finding words to say. He is in no apparent distress. Appears to be comfortable lying supine in bed. He has no new complaints. Exam Vital Signs Vital Sign - Last Date Time Temp Pulse Resp B/P Pulse Ox O2 Delivery O2 Flow Rate FiO2 11/21/16 22:33 70 18 94 Room Air 11/21/16 13:22 36.9 118/80 11/19/16 15:34 1.00 11/16/16 09:00 35 Intake and Output 11/20/16 11/20/16 11/21/16 Cumulative From/Thru 15:00 23:00 07:00 11/14/16 23:05 - 11/20/16 19:04 Intake Total 52 ml 73518 ml Output Total 150 ml 23196 ml Balance -98 ml 2520 ml Intake Oral 0 ml 4958 ml IV Total 52 ml 32707 ml Output Urine Total 150 ml 58912 ml # Voids 1 # Bowel Movements 6 Exam General: Patient is in no apparent distress.. HEENT: Head is atraumatic and normocephalic. Eyes: Pupils are equally round and reactive to light and accommodation. Extraocular muscles are intact. Sclera are white, anicteric. Subconjunctival mucosa is pink. Ears and nose are unremarkable. Oropharynx: There is no mucosal lesions, there is no thrush, there is no pharyngitis. Neck: Is supple, there are no nodes, or masses or tenderness. Chest: Is clear to auscultation and percussion. There are no rales, rhonchi, wheezes or rubs. However breath sounds are shallow. Heart: Rate, rhythm is regular. There is no new murmur, rub or gallop. Abdomen: Good bowel sounds are present. Abdomen is soft, nontender, no organomegaly or masses were appreciated. Extremities: Are symmetrical and well perfused. There is symmetrical edema, there is no cellulitis, no rash. Neurologic: There are no focal neurological deficits. Cranial nerves II through XII are intact. There are no sensory or motor deficits. However, patient exhibits generalized weakness. Psychiatric: Patients mood is calm and shows no sign of agitation. Genital: Deferred Rectal: Deferred Lab and Diagnostics Result Diagram: 11/20/16 0320 11/21/16 0617 Microbiology Specimen: [id number] Collected: 11/15/16 Status: COMP Req#: [id number] Received: 11/16/16 Source: SPUTUM EXP Sp Desc : Subm Dr: Malcolm Beatty MD Ordered: GRAM SPT REFLEX, SPUTUM CULTURE Comments: Collected by Nurse/Unit? Y/N Y Procedure Result Verified Site Microbiology HENRRY CULT SPUTUM GS Final 11/16/16 SPT GRAM STAIN RARE MIXED NORMAL STALIN RARE POLYS RARE EPITHELIAL CELLS This Spec is of good Quality and acceptable for Cult RESPIRATORY CULTURE Final 11/18/16 Organism 1 ESCHERICHIA COLI COLONY COUNT/QUANTITY MODERATE GROWTH Organism 2 WITH NORMAL STALIN COLONY COUNT/QUANTITY LIGHT GROWTH 1. ESCHERICHIA COLI M.I.C Interp --------- ------ * AMIKACIN <=2 S * AMPICILLIN >=32 R * AMPICILLIN/SULBACTAM >=32 R * CEFEPIME <=1 S * CEFOXITIN 8 S * CEFTRIAXONE <=1 S * CIPROFLOXACIN <=0.25 S * ERTAPENEM <=0.5 S * GENTAMICIN <=1 S * MEROPENEM <=0.25 S * TOBRAMYCIN <=1 S * TRIMETHOPRIM/SULFAMETHOXAZOLE >=320 R * PIPERACILLIN/TAZOBACTAM <=4 S Specimen: [id number] Collected: 11/14/16 Status: LAURYN Wiggins#: [id number] Received: 11/14/16 Source: BLOOD Sp Desc : GRAEME Child Dr: DOC,ED MD Ordered: Comments: Collected by Nurse/Unit? Y/N Y BC Procedure Result Verified Site Microbiology HENRRY CULTURE BLOOD Final 11/17/16-0653 Organism 1 ESCHERICHIA COLI GRAM STAIN RESULT GRAM NEGATIVE RODS BC BOTTLE Isolated from Anaerobic Bottle of Set Drawn DATE CALLED: 11/15/16 TIME CALLED: 2105 CALLED BY: CASI Serrano FLOOR/DOCTOR: CCU/KATIE Girard BC READ BACK YES TYPE OF DRAW NURSE COLLLECT TYPE NOT SPECIFIED TIME OF POSITIVITY 2030 GRAM STAIN RESULT GRAM NEGATIVE RODS BC BOTTLE2 Isolated from Aerobic Bottle of Set Drawn DATE CALLED: 11/16/16 TIME CALLED: 449 CALLED BY: STEVEN FLOOR/DOCTOR: CCU/ESTELA MARTINEZ BC READ BACK Y TYPE OF DRAW NURSE COLLECT TYPE NOT INDICATED TIME OF POSITIVITY 0435 ESCHERICHIA COLI ISOLATED FROM FOUR OF FOUR BOTTLES COLLECTED 11/14 1. ESCHERICHIA COLI M.I.C Interp --------- ------ * AMIKACIN <=2 S * AMPICILLIN >=32 R * AMPICILLIN/SULBACTAM >=32 R * CEFEPIME <=1 S * CEFOXITIN 16 I * CEFTRIAXONE <=1 S * CIPROFLOXACIN <=0.25 S CONTINUED ON NEXT PAGE RUN DATE: 11/17/16 Merged with [facility] LIVE PAGE 2 RUN TIME: 652 Specimen Inquiry PHYSICIAN Patient: YINKA WILKINS [id number] (Continued) Specimen: [id number] Collected: 11/14/16 Received: 11/14/16-2316 (Continued) Procedure Result Verified Site HENRRY CULTURE BLOOD Final (continued) 11/17/16-06 1. ESCHERICHIA COLI (continued) M.I.C Interp --------- ------ * ERTAPENEM <=0.5 S * GENTAMICIN <=1 S * MEROPENEM <=0.25 S * TOBRAMYCIN <=1 S * TRIMETHOPRIM/SULFAMETHOXAZOLE >=320 R * PIPERACILLIN/TAZOBACTAM <=4 S X-Rays, CTs and MRIs abdominal CT scan reviewed : 1. Severe fecal loading throughout the colon. Please correlate with clinical data. 2. No free fluid or free air. 3. No inflammatory changes identified. 4. No definite abscess identified. Chest X-ray reviewed : No acute finding Cardiac Echo Impressions Interpretation Summary 09/17/16 The study quality was technically difficult. A contrast injection of Definity was performed to improve assessment of LV function. The left ventricle is mildly dilated. The ejection fraction is estimated to be 50-55%. Compared to the prior exam, left ventricular function is moderately improved. The aortic valve is mildly calcified. The aortic valve is not well visualized. Leaflet mobility is moderately reduced. No significant change in LVOT velocity, consider DIAZ if clinically indicated to further evaluate AV . Assessment & Plan Yinka Wilkins is a 76 year old male with Chronic A-fib on warfarin s/p pacemaker, Coronary syndrome, previous TIA, Congestive heart failure, hypertension and SURESH who presents to [facility] emergency department via EMS with decreased consciousness and dyspnea 1. Acute Respiratory Failure, with hypoxia. Resolved. -Probable acute systolic heart failure, improved. - Improved form respiraotry standpoint. Off BIPAP .On oxygen via nasal canula - Continue nebulizer, BIPAP PRN. - Echocardiography report reviewed :Dilated left ventricle with normal wall thickness and an estimated EF of 45 to 50% 2. Moderate to severely dilated right ventricle with mildly reduced systolic function. Estimated RVSP is 34 mm Hg 3. No evidence for hemodynamically significant valvular disease - We will add low-dose carvedilol. 2. Complicated urinary tract infection, Escherichia coli. POA. Dramatically improving, - Escherichia coli bacteremia - We will continue ceftriaxone for a total of 14 days. - We will ask his nursing facility if they can do this they are. - Patient will need Arana catheter removal he is able to urinate on his own. 3 Severe Sepsis and Escherichia coli septicemia. Present on admission and resolved.. - Patient does have Escherichia coli bacteremia. Source is kidney and bladder infection. - Culture grew E-coli. Patient is on Ceftriaxone after a short run of ertapenem yesterday. - Continue IV antibiotics for a total of 14 days. 4 Lactic acidosis. Present on admission. Resolved - Due to tissue hypoxia from sepsis 5 Acute Kidney Injury.t Prese on admission: Resolved - Likely due to pre renal azotemia - Creatinine improved, will stop hydration. 6 Acute Encephalopathy. Present on admission: Dramatically improved over last 24 hours.. - Patient is at high risk for delirium, avoid psychoactive if possible 7 Chronic systolic heart failure, POA and now stable. - We will continue to hold diuretics for now - We will continue to monitor closely for clinical evidence of fluid overload 8 Chronic Atrial fibrillation, POA and stable. Warfarin per pharmacy. Over anticoagulated today, will hold dose tonight. rate controlled currently - Continue to monitor on telemetry - We will continue Coumadin managed by Pharmacist. Patient is DNI Discharge in several days pending clinical progress. His deep encephalopathy is beginning to improve. Pain Evaluation: Adequate Pain Control VTE Prophylaxis: Theraputic Anticoag with Warfarin VTE Mechanical Devices: Intermittant Pneumatic CD Resuscitation Status: Limited Interventions (DNI) Ld Hall MD Nov 21, 2016 23:27
[2016-11-22 05:57] VITALS: PULSE 66; RESP 20; O2SAT 96
--- NOTE | 2016-11-22 08:33 | NUR ---
refusing care pt is not allowing this RN to assess, move, or medicate. pt appears to be in pain but will not take any medications. pt is refusing lab draw, pharmacy needs lab draw to dose pt's Warfarin. HOB at 70degrees and then tilted forward to eat, pt will not allow reposition to permit HOB to be 90 degrees.
[2016-11-22] MEDS: Acetaminophen IV 1,000 MG in IV Premix 1 EACH IV PRN (10:46)
[2016-11-22 13:52] VITALS: PULSE 70; RESP 18; O2SAT 96
[2016-11-22] MEDS: cefTRIAXone Inj 2,000 MG in Dextrose 5% Minibag Plus 50 ML IV SCH (15:02)
[2016-11-22] MEDS: oxyCODONE-Acetamin 10-325 mg Tablet PO PRN (15:03)
--- NOTE | 2016-11-22 15:10 | NUR ---
word searching pt unable to come up with words, appears to be frustrated. this RN will keep trying to communicate with patient. treating pain based on groans/grimaces
--- NOTE | 2016-11-22 17:21 | PCM.PNMED ---
Subjective Date of Service Nov 22, 2016 Subjective Patient is refusing all care today according to his registered nurse Tigre Qureshi. On my visit with the patient he appears to have difficulty getting any words out. However, according to each therapy he is able to swallow and eat. He is allowing the FRY COOK to feed him. He is taking oral medications. He is also taking IV medications. He did refuses his blood draw this morning. Exam Vital Signs Vital Sign - Last Date Time Temp Pulse Resp B/P Pulse Ox O2 Delivery O2 Flow Rate FiO2 11/22/16 13:52 70 18 96 Room Air 11/21/16 13:22 36.9 118/80 11/19/16 15:34 1.00 11/16/16 09:00 35 Intake and Output 11/21/16 11/21/16 11/22/16 Cumulative From/Thru 15:00 23:00 07:00 11/14/16 23:05 - 11/22/16 06:30 Intake Total 200 ml 300 ml 0 ml 44875 ml Output Total 450 ml 500 ml 600 ml 26283 ml Balance -250 ml -200 ml -600 ml 1470 ml Intake Oral 200 ml 300 ml 0 ml 5458 ml IV Total 88458 ml Output Urine Total 450 ml 500 ml 600 ml 74731 ml # Voids 1 # Bowel Movements 0 6 Exam General: Patient is in no apparent distress.. HEENT: Head is atraumatic and normocephalic. Eyes: Pupils are equally round and reactive to light and accommodation. Extraocular muscles are intact. Sclera are white, anicteric. Subconjunctival mucosa is pink. Ears and nose are unremarkable. Oropharynx: There is no mucosal lesions, there is no thrush, there is no pharyngitis. Neck: Is supple, there are no nodes, or masses or tenderness. Chest: Is clear to auscultation and percussion. There are no rales, rhonchi, wheezes or rubs. However breath sounds are shallow. Heart: Rate, rhythm is regular. There is no new murmur, rub or gallop. Abdomen: Good bowel sounds are present. Abdomen is soft, nontender, no organomegaly or masses were appreciated. Extremities: Are symmetrical and well perfused. There is symmetrical edema, there is no cellulitis, no rash. Neurologic: There are no focal neurological deficits. Cranial nerves II through XII are intact. There are no sensory or motor deficits. However, patient exhibits generalized weakness. Patient also appears to have expressive aphasia and has difficulty getting any words out. Psychiatric: Patients mood is calm and shows no sign of agitation. Genital: Deferred Rectal: Deferred Lab and Diagnostics Result Diagram: 11/20/16 0320 11/21/16616 Microbiology Specimen: [id number] Collected: 11/15/16 Status: COMP Req#: [id number] Received: 11/16/16 Source: SPUTUM EXP Sp Desc : Subm Dr: Malcolm Beatty MD Ordered: GRAM SPT REFLEX, SPUTUM CULTURE Comments: Collected by Nurse/Unit? Y/N Y Procedure Result Verified Site Microbiology HENRRY CULT SPUTUM GS Final 11/16/161239 SPT GRAM STAIN RARE MIXED NORMAL STALIN RARE POLYS RARE EPITHELIAL CELLS This Spec is of good Quality and acceptable for Cult RESPIRATORY CULTURE Final 11/18/16 Organism 1 ESCHERICHIA COLI COLONY COUNT/QUANTITY MODERATE GROWTH Organism 2 WITH NORMAL STALIN COLONY COUNT/QUANTITY LIGHT GROWTH 1. ESCHERICHIA COLI M.I.C Interp --------- ------ * AMIKACIN <=2 S * AMPICILLIN >=32 R * AMPICILLIN/SULBACTAM >=32 R * CEFEPIME <=1 S * CEFOXITIN 8 S * CEFTRIAXONE <=1 S * CIPROFLOXACIN <=0.25 S * ERTAPENEM <=0.5 S * GENTAMICIN <=1 S * MEROPENEM <=0.25 S * TOBRAMYCIN <=1 S * TRIMETHOPRIM/SULFAMETHOXAZOLE >=320 R * PIPERACILLIN/TAZOBACTAM <=4 S Specimen: [id number] Collected: 11/14/16 Status: LAURYN Wiggins#: [id number] Received: 11/14/16 Source: BLOOD Sp Desc : GRAEME Child Dr: DOC,ED MD Ordered: JAYY Comments: Collected by Nurse/Unit? Y/N Y BC Procedure Result Verified Site Microbiology HENRRY CULTURE BLOOD Final 11/17/16-652 Organism 1 ESCHERICHIA COLI GRAM STAIN RESULT GRAM NEGATIVE RODS BC BOTTLE Isolated from Anaerobic Bottle of Set Drawn DATE CALLED: 11/15/16 TIME CALLED: 2105 CALLED BY: CASI Serrano FLOOR/DOCTOR: CCU/KATIE Girard BC READ BACK YES TYPE OF DRAW NURSE COLLLECT TYPE NOT SPECIFIED TIME OF POSITIVITY 2030 GRAM STAIN RESULT GRAM NEGATIVE RODS BC BOTTLE2 Isolated from Aerobic Bottle of Set Drawn DATE CALLED: 11/16/16 TIME CALLED: 045 CALLED BY: WATADA FLOOR/DOCTOR: LAYO/ESTELA MARTINEZ BC READ BACK Y TYPE OF DRAW NURSE COLLECT TYPE NOT INDICATED TIME OF POSITIVITY 043 ESCHERICHIA COLI ISOLATED FROM FOUR OF FOUR BOTTLES COLLECTED 11/14 1. ESCHERICHIA COLI M.I.C Interp --------- ------ * AMIKACIN <=2 S * AMPICILLIN >=32 R * AMPICILLIN/SULBACTAM >=32 R * CEFEPIME <=1 S * CEFOXITIN 16 I * CEFTRIAXONE <=1 S * CIPROFLOXACIN <=0.25 S CONTINUED ON NEXT PAGE RUN DATE: 11/17/16 [facility] LIVE PAGE 2 RUN TIME: 06 Specimen Inquiry PHYSICIAN Patient: YINKA WILKINS [id number] (Continued) Specimen: [id number] Collected: 11/14/16-1109 Received: 11/14/16-2316 (Continued) Procedure Result Verified Site HENRRY CULTURE BLOOD Final (continued) 11/17/16-652 1. ESCHERICHIA COLI (continued) M.I.C Interp --------- ------ * ERTAPENEM <=0.5 S * GENTAMICIN <=1 S * MEROPENEM <=0.25 S * TOBRAMYCIN <=1 S * TRIMETHOPRIM/SULFAMETHOXAZOLE >=320 R * PIPERACILLIN/TAZOBACTAM <=4 S X-Rays, CTs and MRIs abdominal CT scan reviewed : 1. Severe fecal loading throughout the colon. Please correlate with clinical data. 2. No free fluid or free air. 3. No inflammatory changes identified. 4. No definite abscess identified. Chest X-ray reviewed : No acute finding Cardiac Echo Impressions Interpretation Summary 09/17/16 The study quality was technically difficult. A contrast injection of Definity was performed to improve assessment of LV function. The left ventricle is mildly dilated. The ejection fraction is estimated to be 50-55%. Compared to the prior exam, left ventricular function is moderately improved. The aortic valve is mildly calcified. The aortic valve is not well visualized. Leaflet mobility is moderately reduced. No significant change in LVOT velocity, consider DIAZ if clinically indicated to further evaluate AV . Assessment & Plan Yinka Wilkins is a 76 year old male with Chronic A-fib on warfarin s/p pacemaker, Coronary syndrome, previous TIA, Congestive heart failure, hypertension and SURESH who presents to [facility] emergency department via EMS with decreased consciousness and dyspnea 1. Acute Respiratory Failure, with hypoxia. Resolved. -Probable acute systolic heart failure, improved. - Improved form respiraotry standpoint. Off BIPAP .On oxygen via nasal canula - Continue nebulizer, BIPAP PRN. - Echocardiography report reviewed :Dilated left ventricle with normal wall thickness and an estimated EF of 45 to 50% 2. Moderate to severely dilated right ventricle with mildly reduced systolic function. Estimated RVSP is 34 mm Hg 3. No evidence for hemodynamically significant valvular disease - We will add low-dose carvedilol. 2. Complicated urinary tract infection, Escherichia coli. POA. Dramatically improving, - Escherichia coli bacteremia - We will continue ceftriaxone that patient has received a total of 14 days. Patient has received 7 of 14. - We will ask his nursing facility if they can care for this patient on IV antibiotics. However patient is refusing care at this time. - Patient will need Arana catheter removal he is able to urinate on his own. 3 Severe Sepsis and Escherichia coli septicemia. Present on admission and resolved.. - Patient does have Escherichia coli bacteremia. Source is kidney and bladder infection. - Culture grew E-coli. Patient is on Ceftriaxone after a short run of ertapenem yesterday. - Continue IV antibiotics for a total of 14 days. Patient is on day 7 of 14. 4 Lactic acidosis. Present on admission. Resolved - Due to tissue hypoxia from sepsis 5 Acute Kidney Injury. Present on admission: Resolved - Likely due to pre renal azotemia - Creatinine improved, will stop hydration. 6 Acute Encephalopathy. Present on admission: Dramatically improved over last 24 hours.. - Patient is at high risk for delirium, avoid psychoactive if possible - Patient refused blood draws again this morning and pharmacy is having difficulty dosing his Coumadin without blood draws. - We will see if patient allows the engrosser draw his blood in the morning. 7 Chronic systolic heart failure, POA and now stable. - We will continue to hold diuretics for now - We will continue to monitor closely for clinical evidence of fluid overload - Carvedilol started at 3.25 mg by mouth twice a day 8 Chronic Atrial fibrillation, POA and stable. Warfarin per pharmacy. Over anticoagulated today, will hold dose tonight. rate controlled currently - Continue to monitor on telemetry - We will continue Coumadin managed by Pharmacist. - Carvedilol 3.125 mg by mouth twice a day ordered. Patient is DNI Discharge in several days pending clinical progress. His deep encephalopathy is beginning to improve. Hopefully he will begin to cooperate more with his care. If not and patient continues to refuse certain aspects of his care we will consult palliative care and consider hospice referral. Pain Evaluation: Adequate Pain Control GI Prophylaxis: Proton Pump Inhibitor VTE Prophylaxis: Theraputic Anticoag with Warfarin VTE Mechanical Devices: Intermittant Pneumatic CD Resuscitation Status: Limited Interventions (DNI) Ld Hall MD Nov 22, 2016 17:21
[2016-11-22 21:03] VITALS: BP 129/72; PULSE 71; RESP 22; O2SAT 96
--- NOTE | 2016-11-22 22:26 | NUR ---
Mentation Refuses Q2 turning. Answering clearly "no" Didn't object to assessment as long as he didn't have to participate in any way. Non-responsive to questions: Pain/N/V/Numbness/Tingling/Cough/Comfort/Hunger/Thirst.
--- NOTE | 2016-11-23 00:39 | NUR ---
Mentation refusing vitals / cpox: screaming "dammit you just really can't do that"
[2016-11-23 05:15] VITALS: BP 152/73; PULSE 69; RESP 20; O2SAT 94
--- NOTE | 2016-11-23 05:19 | NUR ---
Q2 Turns using P500 turn function set bed to turn intermittently to left side.
[2016-11-23] MEDS: Pantoprazole 40 mg ER24 Tablet PO SCH (08:26)
--- NOTE | 2016-11-23 10:01 | NUR ---
Ref labs Pt adamantly refusing to have labs drawn this morning, screaming, "No! Leave me alone! Don't touch me, you are terrible people!" Reproached pt ~2 hours later for labs with same behavior as above. MD aware of pt's refusal.
--- NOTE | 2016-11-23 13:58 | NUR ---
Social Work: Continued Discharge Planning D: EMR reviewed. Pt is on day 8 of hospitalization. Per MD in AM multi-disciplinary rounds, pt is likely to discharge 11/24. Per PT and SW notes, pt will return to [facility] via BLS when medically stable. DORA placed T/C to Avel at [facility] to confirm pt will be accepted with Dr. Chavis to follow. DORA requested MD JOHN order for "pt to return to SNF via BLS" via [employer] at 6074 on 11/23. Pt to return to [facility] via BLS, pending MD orders. SW will continue to follow. A: Pt form whom a SNF (via BLS) has been deemed medically necessary. P: Pt to return to [facility] via BLS with Dr. Chavis to follow. DORA requested order for "pt to return to SNF via BLS" via [employer] page at 3153 on 11/23. SW will continue to follow. KATEY Irene
[2016-11-23 14:53] VITALS: BP 138/78; PULSE 74; RESP 22; O2SAT 95
[2016-11-23] MEDS: cefTRIAXone Inj 2,000 MG in Dextrose 5% Minibag Plus 50 ML IV SCH (15:01)
--- NOTE | 2016-11-23 15:21 | NUR ---
MD planning Hospitalist in this afternoon to discuss plans such as req Palliative care consult, potentially Hospice. Pt responded with "Thank you" when MD finished.
--- NOTE | 2016-11-23 18:25 | NUR ---
Activity/care Pt remains on bedrest, becomes very agitated and upset when attempt to provide any level of care. Pt frequently yelling out, "Leave me alone, get out of here, go away!" Staff reminding pt that we are here to care for and help him. Pt did allow a bed bath this afternoon and repositioning as well as vitals. Bed in lowest, locked position and call light in reach.
[2016-11-23 20:37] VITALS: BP 132/72; PULSE 65; RESP 20; O2SAT 95
[2016-11-23] MEDS: oxyCODONE-Acetamin 10-325 mg Tablet PO PRN (21:19)
--- NOTE | 2016-11-23 21:54 | PCM.PNMED ---
Subjective Date of Service Nov 23, 2016 Ryan Newsome continues to refuse all nursing care and blood draws. His brother Jeremy explained that he needed to have his blood draws due to checking his Coumadin levels and the patient continues to refuse to have blood draws I spoke with him about the need for blood draws and nursing care to stay alive and he continues to refuse both. When I told him that I would consult hospice care he thanked me. Exam Vital Signs Vital Sign - Last Date Time Temp Pulse Resp B/P Pulse Ox O2 Delivery O2 Flow Rate FiO2 11/23/16 20:37 37.7 65 20 132/72 95 Room Air 11/19/16 15:34 1.00 Intake and Output 11/22/16 11/22/16 11/23/16 Cumulative From/Thru 15:00 23:00 07:00 11/14/16 23:05 - 11/23/16 06:55 Intake Total 60 ml 450 ml 00628 ml Output Total 350 ml 88564 ml Balance 60 ml 100 ml 1630 ml Intake Oral 450 ml 5908 ml IV Total 60 ml 45637 ml Output Urine Total 350 ml 83663 ml # Voids 1 # Bowel Movements 0 6 Exam General: Patient is in no apparent distress. However, patient gets very upset when nursing staff attempts to move him even to clean him up after soiling himself. HEENT: Head is atraumatic and normocephalic. Eyes: Pupils are equally round and reactive to light and accommodation. Extraocular muscles are intact. Sclera are white, anicteric. Subconjunctival mucosa is pink. Ears and nose are unremarkable. Oropharynx: There is no mucosal lesions, there is no thrush, there is no pharyngitis. Neck: Is supple, there are no nodes, or masses or tenderness. Chest: Is fairly clear to auscultation and percussion. There are no rales, rhonchi, wheezes or rubs. However breath sounds are shallow. Heart: Rate, rhythm is regular. There is no new murmur, rub or gallop. Abdomen: Good bowel sounds are present. Abdomen is obese, soft, there is nonspecific tenderness, no organomegaly or masses were appreciated. Extremities: Are symmetrical and well perfused. There is symmetrical edema, there is no cellulitis, no rash. Edema appears slightly improved today. Neurologic: There are no focal neurological deficits. Cranial nerves II through XII are intact. There are no sensory or motor deficits. However, patient exhibits generalized weakness. Patient also appears to have expressive aphasia and has difficulty getting any words out. He did thank me after I told him that I was gone going to consult hospice services to discuss care with him as he is refusing all nursing care and blood draws. Psychiatric: Patients mood is calm and shows no sign of agitation. Genital: Deferred Rectal: Deferred Lab and Diagnostics Result Diagram: 11/20/16 0320 11/21/1617 Microbiology Specimen: [id number] Collected: 11/15/16 Status: COMP Req#: [id number] Received: 11/16/16 Source: SPUTUM EXP Sp Desc : Subm Dr: Malcolm Beatty MD Ordered: GRAM SPT REFLEX, SPUTUM CULTURE Comments: Collected by Nurse/Unit? Y/N Y Procedure Result Verified Site Microbiology HENRRY CULT SPUTUM GS Final 11/16/16 SPT GRAM STAIN RARE MIXED NORMAL STALIN RARE POLYS RARE EPITHELIAL CELLS This Spec is of good Quality and acceptable for Cult RESPIRATORY CULTURE Final 11/18/16 Organism 1 ESCHERICHIA COLI COLONY COUNT/QUANTITY MODERATE GROWTH Organism 2 WITH NORMAL STALIN COLONY COUNT/QUANTITY LIGHT GROWTH 1. ESCHERICHIA COLI M.I.C Interp --------- ------ * AMIKACIN <=2 S * AMPICILLIN >=32 R * AMPICILLIN/SULBACTAM >=32 R * CEFEPIME <=1 S * CEFOXITIN 8 S * CEFTRIAXONE <=1 S * CIPROFLOXACIN <=0.25 S * ERTAPENEM <=0.5 S * GENTAMICIN <=1 S * MEROPENEM <=0.25 S * TOBRAMYCIN <=1 S * TRIMETHOPRIM/SULFAMETHOXAZOLE >=320 R * PIPERACILLIN/TAZOBACTAM <=4 S Specimen: [id number] Collected: 11/14/16 Status: LAURYN Wiggins#: [id number] Received: 11/14/16 Source: BLOOD Sp Desc : GRAEME Child Dr: DOC,ED MD Ordered: JAYY Comments: Collected by Nurse/Unit? Y/N Y BC Procedure Result Verified Site Microbiology HENRRY CULTURE BLOOD Final 11/17/16-0653 Organism 1 ESCHERICHIA COLI GRAM STAIN RESULT GRAM NEGATIVE RODS BC BOTTLE Isolated from Anaerobic Bottle of Set Drawn DATE CALLED: 11/15/16 TIME CALLED: 2105 CALLED BY: CASI C. FLOOR/DOCTOR: CCU/KATIE Girard BC READ BACK YES TYPE OF DRAW NURSE COLLLECT TYPE NOT SPECIFIED TIME OF POSITIVITY 2030 GRAM STAIN RESULT GRAM NEGATIVE RODS BC BOTTLE2 Isolated from Aerobic Bottle of Set Drawn DATE CALLED: 11/16/16 TIME CALLED: 0450 CALLED BY: STEVEN FLOOR/DOCTOR: CCU/ESTELA MARTINEZ BC READ BACK Y TYPE OF DRAW NURSE COLLECT TYPE NOT INDICATED TIME OF POSITIVITY 0435 ESCHERICHIA COLI ISOLATED FROM FOUR OF FOUR BOTTLES COLLECTED 11/14 1. ESCHERICHIA COLI M.I.C Interp --------- ------ * AMIKACIN <=2 S * AMPICILLIN >=32 R * AMPICILLIN/SULBACTAM >=32 R * CEFEPIME <=1 S * CEFOXITIN 16 I * CEFTRIAXONE <=1 S * CIPROFLOXACIN <=0.25 S CONTINUED ON NEXT PAGE RUN DATE: 11/17/16 [facility] LIVE PAGE 2 RUN TIME: 06 Specimen Inquiry PHYSICIAN Patient: YINKA WILKINS [id number] (Continued) Specimen: [id number] Collected: 11/14/16-1109 Received: 11/14/16-2316 (Continued) Procedure Result Verified Site HENRRY CULTURE BLOOD Final (continued) 11/17/16-652 1. ESCHERICHIA COLI (continued) M.I.C Interp --------- ------ * ERTAPENEM <=0.5 S * GENTAMICIN <=1 S * MEROPENEM <=0.25 S * TOBRAMYCIN <=1 S * TRIMETHOPRIM/SULFAMETHOXAZOLE >=320 R * PIPERACILLIN/TAZOBACTAM <=4 S X-Rays, CTs and MRIs abdominal CT scan reviewed : 1. Severe fecal loading throughout the colon. Please correlate with clinical data. 2. No free fluid or free air. 3. No inflammatory changes identified. 4. No definite abscess identified. Chest X-ray reviewed : No acute finding Cardiac Echo Impressions Interpretation Summary 09/17/16 The study quality was technically difficult. A contrast injection of Definity was performed to improve assessment of LV function. The left ventricle is mildly dilated. The ejection fraction is estimated to be 50-55%. Compared to the prior exam, left ventricular function is moderately improved. The aortic valve is mildly calcified. The aortic valve is not well visualized. Leaflet mobility is moderately reduced. No significant change in LVOT velocity, consider DIAZ if clinically indicated to further evaluate AV . Assessment & Plan Yinka Wilkins is a 76 year old male with Chronic A-fib on warfarin s/p pacemaker, Coronary syndrome, previous TIA, Congestive heart failure, hypertension and SURESH who presents to [facility] emergency department via EMS with decreased consciousness and dyspnea 1. Acute Respiratory Failure, with hypoxia. Resolved. -Probable acute systolic heart failure, improved. - Improved form respiraotry standpoint. Off BIPAP .On oxygen via nasal canula - Continue nebulizer, BIPAP PRN. - Echocardiography report reviewed :Dilated left ventricle with normal wall thickness and an estimated EF of 45 to 50% 2. Moderate to severely dilated right ventricle with mildly reduced systolic function. Estimated RVSP is 34 mm Hg 3. No evidence for hemodynamically significant valvular disease - We will add low-dose carvedilol. 2. Complicated urinary tract infection, Escherichia coli. POA. Dramatically improving, - Escherichia coli bacteremia - We will continue ceftriaxone that patient has received a total of 14 days. Patient has received 8 of 14. - We will ask his nursing facility if they can care for this patient on IV antibiotics. However patient is refusing nursing care at this time. He is also refusing all blood draws including a PT/ INR to check his Coumadin levels - Patient will need Arana catheter removal he is able to urinate on his own. 3 Severe Sepsis and Escherichia coli septicemia. Present on admission and resolved.. - Patient does have Escherichia coli bacteremia. Source is kidney and bladder infection. - Culture grew E-coli. Patient is on Ceftriaxone after a short run of ertapenem yesterday. - Continue IV antibiotics for a total of 14 days. Patient is on day 8 of 14. 4 Lactic acidosis. Present on admission. Resolved - Due to tissue hypoxia from sepsis 5 Acute Kidney Injury. Present on admission: Resolved - Likely due to pre renal azotemia - Creatinine improved, will stop hydration. 6 Acute Encephalopathy. Present on admission: Dramatically improved. - Patient is at high risk for delirium, avoid psychoactive if possible - Patient refused blood draws again this morning and pharmacy is having difficulty dosing his Coumadin without blood draws. - After informed patient that I was going to consult hospice and palliative care , due to his refusal of blood draws and nursing care, he thinks may 7 Chronic systolic heart failure, POA and now stable. - We will continue to hold diuretics for now - We will continue to monitor closely for clinical evidence of fluid overload - Carvedilol started at 3.25 mg by mouth twice a day 8 Chronic Atrial fibrillation, POA and stable. Warfarin per pharmacy. Over anticoagulated today, will hold dose tonight. rate controlled currently - Continue to monitor on telemetry - We will continue Coumadin managed by Pharmacist. - Carvedilol 3.125 mg by mouth twice a day ordered. Patient is DNI Discharge in several days pending clinical progress. His deep encephalopathy is beginning to improve. As patient continues to refuse certain aspects of his care we will consult palliative care and obtain hospice referral. Pain Evaluation: Adequate Pain Control GI Prophylaxis: Proton Pump Inhibitor VTE Prophylaxis: Theraputic Anticoag with Warfarin VTE Mechanical Devices: Intermittant Pneumatic CD Resuscitation Status: Limited Interventions (DNI) Ld Hall MD Nov 23, 2016 21:53
[2016-11-24 01:35] LABS: APPEARANCE,URINE HAZY (CLEAR,HAZY); COLOR,URINE DARK YELLOW (YELLOW); OCCULT BLOOD,URINE LARGE (NEGATIVE); UROBILINOGEN,URINE NORMAL (NORMAL)
[2016-11-24 02:34] VITALS: PULSE 70; O2SAT 94
--- NOTE | 2016-11-24 05:34 | NUR ---
behavior/pain Pt refused assessment, care and [id number] even with education and when reapproached. Pt is constantly agitated to staff and threatens to hit staff when explaining what care we need to do. Pt felt warm. Temp was 37.7. Tylenol given. Percocet given per pt's request with good relief. Slept intermittently. hourly rounding done; doesn't use his call light.
[2016-11-24 05:54] VITALS: BP 125/75; PULSE 70; RESP 20; O2SAT 95
[2016-11-24] MEDS: oxyCODONE-Acetamin 10-325 mg Tablet PO PRN ×3 (06:47→23:43)
[2016-11-24] MEDS: Pantoprazole 40 mg ER24 Tablet PO SCH (08:01)
--- NOTE | 2016-11-24 09:41 | NUR ---
FLORINDA: Attempted to speak with patient and he is pleasantly confused this morning, unable to accept and sign FLORINDA. Asked ASSOCIATE DIRECTOR OF SALES to follow up with NOK.
--- NOTE | 2016-11-24 09:50 | NUR ---
Refusal of labs Pt refusing to allow lab draws this AM, yelling, "No!" and "Get away from me!" Importance and rationale for labs explained repeatedly to pt who continues to refuse to allow any lab draws.
--- NOTE | 2016-11-24 11:59 | NUR ---
Palliative Care Palliative Care received verbal order from Dr Hall 11/24/16 to assist with goals of care. Patient admitted 11/15/16. He resides at [facility]. Tigre Wilkins (brother) [phone] Jose Wilkins (brother) [phone], Palliative Care to follow. Joy Todd
--- NOTE | 2016-11-24 14:30 | NUR ---
FLORINDA signed by brother Jose. KATEY Horton
[2016-11-24] MEDS: cefTRIAXone Inj 2,000 MG in Dextrose 5% Minibag Plus 50 ML IV SCH (14:42)
--- NOTE | 2016-11-24 15:16 | NUR ---
Social Work0-readiness for discharge: Data:EMR Reviewed. Pt is on day 9 of hospitalization for coma per H&P. Pt may be ready to discharge tomorrow. DORA spoke with Dr. Smith from Palliative care who states that she has spoken with both brothers Jose and Tigre and they would like pt to return back to [place] on Hospice services. DORA spoke with Amanda at [facility] who confirms pt is paying privately there and he can return with Hospice. Amanda states they are ready to accept pt back whenever he is ready. DORA received MD order for Hospice. DORA spoke with brother about Hospice, brother would like Hospice [facility]. DORA called and spoke with Sydnee who states that Iva can come up and meet with brother around 1530. SW updated brother at bedside and he is agreeable to plan. Paperwork placed in the chart. DORA will continue to follow. Assessment:SNF with Hospice. Plan:Pt to discharge back to [facility] likely with Hospice services. Hospice to come and meet with pt's brother today. Paperwork placed in the chart. DORA will continue to follow. KATEY Horton Addendum: 11/24/16 at 1556 by MARINA MCELROY Pt has signed consents with Hospice. DORA to hear back from Hospice regarding open date. DORA will continue to follow. KATEY Horton
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
--- NOTE | 2016-11-24 16:15 | NUR ---
Pt declined swallow evaluation. Discussed with family and RN.
--- NOTE | 2016-11-24 16:18 | NUR ---
Intake Pt coughing with PO intake, liquids downgraded to NTL. Speech eval ordered, pt refused. Discussed with pt and brother that with refusal, staff will be required to give pt NTL to ensure safe swallowing. Educated them on dietary waiver, pt refused stating, "No." Pt then stated, "I will think about it."
--- NOTE | 2016-11-24 17:47 | NUR ---
Refusal of care Pt adamantly refusing any personal care this shift despite repeated attempts from staff, brother and visitors. Pt yelling and saying, "I'll hit you if you touch me!" Frequently yelling and swearing at staff. When attempted to position pillows, pt tensed up and attempted to strike staff. Family at bedside most of shift, aware of pt's refusals despite education and increased risk of skin breakdown. Pt refused afternoon vitals, refusing meals with exceptions of bites/applesauce/diet soda. Refused nicolás care to [place]. Refused speech eval. Staff attempting to educate and give rationales for care and pt refusing. Pt repeating, "This is blackmail! This is blackmail!" when reasons explained. Bed remains in lowest, locked position and call light in reach.
[2016-11-24 21:02] VITALS: BP 151/82; PULSE 69; RESP 20; O2SAT 94
--- NOTE | 2016-11-24 23:31 | PCM.PNMED ---
Subjective Date of Service Nov 24, 2016 Subjective Patient continues to refuse lab work and nursing care. He is allowing vital signs and IV medications. Exam Vital Signs Vital Sign - Last Date Time Temp Pulse Resp B/P Pulse Ox O2 Delivery O2 Flow Rate FiO2 11/24/16 21:02 36.7 69 20 151/82 94 Room Air 11/19/16 15:34 1.00 Intake and Output 11/23/16 11/23/16 11/24/16 Cumulative From/Thru 15:00 23:00 07:00 11/14/16 23:05 - 11/24/16 06:21 Intake Total 1666 ml 100 ml 33028 ml Output Total 600 ml 450 ml 22499 ml Balance 1066 ml -350 ml 2346 ml Intake Oral 1527 ml 100 ml 7535 ml IV Total 139 ml 59347 ml Output Urine Total 600 ml 450 ml 03445 ml # Voids 1 # Bowel Movements 1 0 7 Exam General: Patient is in no apparent distress. However, patient gets very upset when nursing staff attempts to move him even to clean him up after soiling himself. HEENT: Head is atraumatic and normocephalic. Eyes: Pupils are equally round and reactive to light and accommodation. Extraocular muscles are intact. Sclera are white, anicteric. Subconjunctival mucosa is pink. Ears and nose are unremarkable. Oropharynx: There is no mucosal lesions, there is no thrush, there is no pharyngitis. Neck: Is supple, there are no nodes, or masses or tenderness. Chest: Is fairly clear to auscultation and percussion. There are no rales, rhonchi, wheezes or rubs. However breath sounds are shallow. Heart: Rate, rhythm is regular. There is no new murmur, rub or gallop. Abdomen: Good bowel sounds are present. Abdomen is obese, soft, there is nonspecific tenderness, no organomegaly or masses were appreciated. Extremities: Are symmetrical and well perfused. There is symmetrical edema, there is no cellulitis, no rash. Edema appears slightly improved today. The right wrist appears to be tender to touch and any range of motion. Neurologic: There are no focal neurological deficits. Cranial nerves II through XII are intact. There are no sensory or motor deficits. However, patient exhibits generalized weakness. Patient also appears to have expressive aphasia and has difficulty getting any words out. He did thank me after I told him that I was gone going to consult hospice services to discuss care with him as he is refusing all nursing care and blood draws. Psychiatric: Patients mood is calm and shows no sign of agitation. Genital: Deferred Rectal: Deferred Lab and Diagnostics Result Diagram: 11/20/16 0320 11/21/16616 Microbiology Specimen: [id number] Collected: 11/15/16 Status: COMP Req#: [id number] Received: 11/16/16 Source: SPUTUM EXP Sp Desc : Subm Dr: Malcolm Beatty MD Ordered: GRAM SPT REFLEX, SPUTUM CULTURE Comments: Collected by Nurse/Unit? Y/N Y Procedure Result Verified Site Microbiology HENRRY CULT SPUTUM GS Final 11/16/161235 SPT GRAM STAIN RARE MIXED NORMAL STALIN RARE POLYS RARE EPITHELIAL CELLS This Spec is of good Quality and acceptable for Cult RESPIRATORY CULTURE Final 11/18/16 Organism 1 ESCHERICHIA COLI COLONY COUNT/QUANTITY MODERATE GROWTH Organism 2 WITH NORMAL STALIN COLONY COUNT/QUANTITY LIGHT GROWTH 1. ESCHERICHIA COLI M.I.C Interp --------- ------ * AMIKACIN <=2 S * AMPICILLIN >=32 R * AMPICILLIN/SULBACTAM >=32 R * CEFEPIME <=1 S * CEFOXITIN 8 S * CEFTRIAXONE <=1 S * CIPROFLOXACIN <=0.25 S * ERTAPENEM <=0.5 S * GENTAMICIN <=1 S * MEROPENEM <=0.25 S * TOBRAMYCIN <=1 S * TRIMETHOPRIM/SULFAMETHOXAZOLE >=320 R * PIPERACILLIN/TAZOBACTAM <=4 S Specimen: [id number] Collected: 11/14/16 Status: LAURYN Wiggins#: [id number] Received: 11/14/16 Source: BLOOD Sp Desc : GRAEME Child Dr: DOC,ED MD Ordered: Comments: Collected by Nurse/Unit? Y/N Y BC Procedure Result Verified Site Microbiology HENRRY CULTURE BLOOD Final 11/17/16-06 Organism 1 ESCHERICHIA COLI GRAM STAIN RESULT GRAM NEGATIVE RODS BC BOTTLE Isolated from Anaerobic Bottle of Set Drawn DATE CALLED: 11/15/16 TIME CALLED: [id number] CALLED BY: CASI Serrano FLOOR/DOCTOR: CCU/KATIE Girard BC READ BACK YES TYPE OF DRAW NURSE COLLLECT TYPE NOT SPECIFIED TIME OF POSITIVITY 2030 GRAM STAIN RESULT GRAM NEGATIVE RODS BC BOTTLE2 Isolated from Aerobic Bottle of Set Drawn DATE CALLED: 11/16/16 TIME CALLED: 449 CALLED BY: STEVEN FLOOR/DOCTOR: LAYO/ESTELA MARTINEZ BC READ BACK Y TYPE OF DRAW NURSE COLLECT TYPE NOT INDICATED TIME OF POSITIVITY 043 ESCHERICHIA COLI ISOLATED FROM FOUR OF FOUR BOTTLES COLLECTED 11/14. ESCHERICHIA COLI M.I.C Interp --------- ------ * AMIKACIN <=2 S * AMPICILLIN >=32 R * AMPICILLIN/SULBACTAM >=32 R * CEFEPIME <=1 S * CEFOXITIN 16 I * CEFTRIAXONE <=1 S * CIPROFLOXACIN <=0.25 S CONTINUED ON NEXT PAGE RUN DATE: 11/17/16 [facility] LIVE PAGE 2 RUN TIME: 06 Specimen Inquiry PHYSICIAN Patient: YINKA WILKINS [id number] (Continued) Specimen: [id number] Collected: 11/14/16-1109 Received: 11/14/16-2316 (Continued) Procedure Result Verified Site HENRRY CULTURE BLOOD Final (continued) 11/17/16-06 1. ESCHERICHIA COLI (continued) M.I.C Interp --------- ------ * ERTAPENEM <=0.5 S * GENTAMICIN <=1 S * MEROPENEM <=0.25 S * TOBRAMYCIN <=1 S * TRIMETHOPRIM/SULFAMETHOXAZOLE >=320 R * PIPERACILLIN/TAZOBACTAM <=4 S X-Rays, CTs and MRIs abdominal CT scan reviewed : 1. Severe fecal loading throughout the colon. Please correlate with clinical data. 2. No free fluid or free air. 3. No inflammatory changes identified. 4. No definite abscess identified. Chest X-ray reviewed : No acute finding Cardiac Echo Impressions Interpretation Summary 09/17/16 The study quality was technically difficult. A contrast injection of Definity was performed to improve assessment of LV function. The left ventricle is mildly dilated. The ejection fraction is estimated to be 50-55%. Compared to the prior exam, left ventricular function is moderately improved. The aortic valve is mildly calcified. The aortic valve is not well visualized. Leaflet mobility is moderately reduced. No significant change in LVOT velocity, consider DIAZ if clinically indicated to further evaluate AV . Assessment & Plan Yinka Wilkins is a 76 year old male with Chronic A-fib on warfarin s/p pacemaker, Coronary syndrome, previous TIA, Congestive heart failure, hypertension and SURESH who presents to [facility] emergency department via EMS with decreased consciousness and dyspnea 1. Acute Respiratory Failure, with hypoxia. Resolved. -Probable acute systolic heart failure, improved. - Improved form respiraotry standpoint. Off BIPAP .On oxygen via nasal canula - Continue nebulizer, BIPAP PRN. - Echocardiography report reviewed :Dilated left ventricle with normal wall thickness and an estimated EF of 45 to 50% 2. Moderate to severely dilated right ventricle with mildly reduced systolic function. Estimated RVSP is 34 mm Hg 3. No evidence for hemodynamically significant valvular disease - We will add low-dose carvedilol. 2. Complicated urinary tract infection, Escherichia coli. POA. Dramatically improving, - Escherichia coli bacteremia - We will continue ceftriaxone that patient has received a total of 14 days. Patient has received . - We will ask his nursing facility if they can care for this patient on IV antibiotics. However patient is refusing nursing care at this time. He is also refusing all blood draws including a PT/ INR to check his Coumadin levels - Patient will need Arana catheter removal he is able to urinate on his own. 3 Severe Sepsis and Escherichia coli septicemia. Present on admission and resolved.. - Patient does have Escherichia coli bacteremia. Source is kidney and bladder infection. - Culture grew E-coli. Patient is on Ceftriaxone after a short run of ertapenem yesterday. - Continue IV antibiotics for a total of 14 days. Patient is on day 9 of . 4 Lactic acidosis. Present on admission. Resolved - Due to tissue hypoxia from sepsis 5 Acute Kidney Injury. Present on admission: Resolved - Likely due to pre renal azotemia - Creatinine improved, will stop hydration. 6 Acute Encephalopathy. Present on admission: Dramatically improved. - Patient is at high risk for delirium, avoid psychoactive if possible - Patient refused blood draws again this morning and pharmacy is having difficulty dosing his Coumadin without blood draws. - After informed patient that I was going to consult hospice and palliative care , due to his refusal of blood draws and nursing care, he thinks may 7 Chronic systolic heart failure, POA and now stable. - We will continue to hold diuretics for now - We will continue to monitor closely for clinical evidence of fluid overload - Carvedilol started at 3.25 mg by mouth twice a day 8 Chronic Atrial fibrillation, POA and stable. Warfarin per pharmacy. Over anticoagulated today, will hold dose tonight. rate controlled currently - Continue to monitor on telemetry - We will continue Coumadin managed by Pharmacist. - Carvedilol 3.125 mg by mouth twice a day ordered. Patient is now a DNR/DNI after long discussion with patient and his brother Jose , who discussed the case with his brother Jeremy and sister Jacinta. Disposition: Plan is for to be discharging patient home with hospice care. Pain Evaluation: Adequate Pain Control GI Prophylaxis: Proton Pump Inhibitor VTE Prophylaxis: Theraputic Anticoag with Warfarin VTE Mechanical Devices: Intermittant Pneumatic CD Resuscitation Status: DNR/DNI:Do Not Resuscitate/Intubate (DNI) Ld Hall MD Nov 24, 2016 23:30
--- NOTE | 2016-11-24 23:36 | PCM.ADCARE ---
Advance Care Planning Note Purpose of Encounter: To establish goals of care. Parties in Attendance: The patient, his brother Jose, and sister Jacinta. Decisional Capacity: Patient is unable to make his own decisions and his brothers wyatt and Jose will be speaking in his behalf. Subjective: The patient's medical condition is deteriorated significantly over last several months. He is refusing blood draws that are necessary for his care. He is refusing many facets of basic nursing care including cleaning him up after he soils himself. Objective: Same as above Goals of Care Determinations: She is now to be a DNR/DNI and will consult hospice care for patient to be allowed to with peace and dignity. Plan: As above CODE STATUS: Patient is now DO NOT RESUSCITATE/DO NOT INTUBATE Time Spent Adv.Care Planning: Approximately 30 minutes was spent during and throughout the day on advanced care planning with the patient other Jose and his sister Jacinta as well as collaborating with the palliative care team and Dr. Smith. Dr. Chu's input in this case is greatly appreciated. Adv. Care Plan Documenation: As above. Ld Hall MD Nov 24, 2016 23:35
[2016-11-25 05:04] VITALS: PULSE 70; RESP 20; O2SAT 95
--- NOTE | 2016-11-25 06:34 | NUR ---
Pt continues refusing care Pt continues refusing most of care: Refuses answer assessment questions, does not compliance with full physical assessment, including lung sounds, abdomen, skin check,etc, refuses vital signs and lab draw this am. He particularly refuses turn despite explained the rational and risks of develop pressure ulcer, he screamed and yelled when nursing staff even touched his blanket or bed, he yell at nursing staff "go away" whenever we offered him to reposition.
[2016-11-25] MEDS: Pantoprazole 40 mg ER24 Tablet PO SCH (09:31)
[2016-11-25] MEDS: oxyCODONE-Acetamin 10-325 mg Tablet PO PRN ×2 (09:31→16:11)
--- NOTE | 2016-11-25 09:59 | PCM.PALLBR ---
Palliative Care Recommendation Summary of palliative recommendations: 11/25/16-Pain- tolerated gabapentin in chris. Will try 300 mg BID. some concern with his ataxia and hx falls but based on brother's acct I think he is no longer doing any attempt at ambulation so moot. If indeed that is the case- consider increasing this to 300 mg TID and possibly 600 mg TID. Considered scheduled oxycodone--will start at TID and continue PRN. At this point goals of care established and will be returning with hospice involvement. If his neuro decline continues at the pace it has he would qualify. If part of perceived neuro decline is psychiatric- he may not qualify based on stability-eval over time. Palliative will sign off at this point. Please feel free to contact the dept if any questions or issues develop. -Symptom management (Pain/other) Pain-chronic narcotic use and tolerance. Present pain seems to have a significant neuropathic component with being so hypersensitivity even to light touch. Starting gabapentin 300 at bedtime. If tolerates this we will increase to 3 times a day and monitor. Consider increasing his narcotics and possibly starting methadone low-dose such as 2.5-5 mg twice a day Encephalopathy-unclear as to cause. This could be delirium but sounds like it may have started prior. Unclear if it is part of his neurodegenerative process. Minimize medications that would aggravate this. 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 -DPOA/Advanced Directives/POLST-his brother states that Tigre and Jose are listed as DURABLE POWER OF AIR QUALITY SPECIALIST for healthcare. It is unclear where that paperwork is. POLST completed DO NOT RESUSCITATE comfort measures, and no feeding tube.. This is explained in front of the patient. His brother's signs it in front of the patient and the patient makes no comment about CODE STATUS. His only comment is he does not understand and then he states "safeguard" -Family/emotional support-2 very supportive brothers -Spiritual support-not addressed Additional Medical Diagnoses with primary management by Hospitalist team include : UTI with sepsis on antibiotics A. fib on anticoagulation Chronic edema possibly due to his amlodipine Hypertension adequately controlled Dilated cardiomyopathy with low EF and history of CHF Problems: End of Life Preferences DNR/DNI no feeding tube Goals of Care Back to [facility] with hospice assist if possible Disposition [facility] when medically stable Resuscitation Status Resuscitation Status: DNR/DNI:Do Not Resuscitate/Intubate (DNI) POLST Updates/Changes Previous POLST?: Yes Artificially Admin Nutrition: No Artifical Nutrition by Tube POLST Discussed with: Health Care Agent (DPOAHC) (brother Jose) POLST Review Outcome: New Form Completed . Pain: Moderate Symptom management: Agitation, Pain, Constipation Total time 20 minutes; >50% face to face with patient and/or family, providing counselling regarding plans and recommendations, and in care coordination with his/her medical teams. Coordination of care with hospitalist team, discussion with patient. He declined exam I also spent an additional [ ] minutes counseling for advanced care planning with the patient/the patients family/the surrogate decision maker. copies to: Van Sutton MD; Emmanuel Womack DO Palliative Brief Note Date of Service Nov 25, 2016 . Follow up on possible pain as sx causing reluctance for care. Patient states only area of pain is his LBP which is chronic. When asked re what appears to be pain with touch he states it is because of being "man-handled" by staff and that they should all be fired. When asked about [facility] he states it is better than here. When asked about code status change he just gives vague response-"it is what it is". O: way more verbal than yesterday-still unclear if he can process complicated concepts. continues on IV antibiotics and has not pulled out his IV. No labs since he refuses. ECG paced with resultant block and long QT making it difficult to consider methadone. Mary Smith MD Nov 25, 2016 09:59
--- NOTE | 2016-11-25 14:51 | PCM.DIMED ---
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
[2016-11-25] MEDS ORDERED: CARV3.122 PO (14:57)
[2016-11-25] MEDS ORDERED: CEFD300C3 PO (14:57)
[2016-11-25] MEDS: cefTRIAXone Inj 2,000 MG in Dextrose 5% Minibag Plus 50 ML IV SCH (15:02)
--- NOTE | 2016-11-25 15:45 | NUR ---
Social Work-discharge: Data:EMR Reviewed. Pt is on day10 of hospitalization for Pneumonia per H&P. Pt is medically stable for discharge. DORA spoke with Christine at [facility] who confirms they are able to accept pt back today. Pt is paying privately at SNF. DORA created packet and faxed order to [facility]. DORA spoke with Miriam from Hospice who confirms they will be able to open on service with pt tomorrow morning between -. DORA updated [facility] with this information.MD order received for BLS. UR specialist arranged BLS transport for 1630. DORA met with pt and brother Jose at bedside, SW role explained. DORA explained pt is ready to discharge back to [facility] today and that transport has been arranged via [facility] for 1630. DORA explained to brother that SW cannot guarantee that insurance will cover the cost of transport, brother agreeable to proceed. DORA also updated brother that Hospice will be out tomorrow morning to open with pt between -. RN,UC,pt/family, Hospice, and [facility] all updated and agreeable to plan. Assessment:Pt to benefit from SNF and Hospice. Plan:Pt to discharge back to [facility] today via BLS at 1630. Hospice to open with pt tomorrow morning between -11. RN,UC,pt/family, Hospice, and [facility] all updated and agreeable to plan. KATEY Horton
[2016-11-25 16:20] VITALS: PULSE 72; O2SAT 95
--- NOTE | 2016-11-25 16:45 | NUR ---
Discharge Report called to at KATIE Farrell at [facility]. IV DCd intact, belongings obtained from safe - transported with brother Jose. Brother reports to be missing pt hearing aids. Jami states they are likely at [facility]. Pt reports continual pain 8/10, premedicated for transport with Oxycodone. Brief change prior to transport, clinton left in place. [facility] transporting pt via [facility]ney.
--- NOTE | 2016-11-26 00:33 | PCM.DC.MED ---
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 Severe fecal loading throughout the colon. Please correlate with clinical data. 2. No free fluid or free air. 3. No inflammatory changes identified. 4. No definite abscess identified. Chest X-ray reviewed : No acute finding Cardiac Echo Impression Interpretation Summary 09/17/16 The study quality was technically difficult. A contrast injection of Definity was performed to improve assessment of LV function. The left ventricle is mildly dilated. The ejection fraction is estimated to be 50-55%. Compared to the prior exam, left ventricular function is moderately improved. The aortic valve is mildly calcified. The aortic valve is not well visualized. Leaflet mobility is moderately reduced. No significant change in LVOT velocity, consider DIAZ if clinically indicated to further evaluate AV . Brief History Per the history and physical note "Yinka Wilkins is a 76 year old male with Chronic A-fib on warfarin s/p pacemaker, Coronary syndrome, previous TIA, CHF, hypertension and SURESH who presents to [facility] emergency department via EMS with decreased consciousness and dyspnea that began just prior to arrival. Patient was poor historian due to decreased consciousness. NO members were present on my evaluation. Emergency department records showed: Family was visiting with the patient who was at his baseline prior to the onset of dyspnea. He was reportedly "blue" and unresponsive which is when the family decided to contact EMS. EMS report that the patient was found with decreased LOC at the scene and O2 stats in the 60's and 70's. His stats improved to 96% following CPAP treatment. Patient was able to provide one word responses en route. Case discussed with Dr Pink, patient placed on BIPAP as he is DNI, with some noticeable improvement. Patient started on Antibiotics and received Vancomycin, Ceftriaxone and Azithromycin." The patient was admitted to the hospital service for further evaluation and treatment. Hospital Course Yinka Wilkins is a 76 year old male with Chronic A-fib on warfarin s/p pacemaker, Coronary syndrome, previous TIA, Congestive heart failure, hypertension and SURESH who presents to [facility] emergency department via EMS with decreased consciousness and dyspnea 1. Acute Respiratory Failure, with hypoxia. Resolved. -Probable acute systolic heart failure, improved. - Improved form respiraotry standpoint. Off BIPAP .On oxygen via nasal canula - Continue nebulizer, BIPAP PRN. - Echocardiography report reviewed :Dilated left ventricle with normal wall thickness and an estimated EF of 45 to 50% 2. Moderate to severely dilated right ventricle with mildly reduced systolic function. Estimated RVSP is 34 mm Hg 3. No evidence for hemodynamically significant valvular disease - We will add low-dose carvedilol. 2. Complicated urinary tract infection, Escherichia coli. POA. Dramatically improving, - Escherichia coli bacteremia - We will continue antibiotics for a total of 14 days. Patient has received . - We will ask his nursing facility if they can care for this patient on IV antibiotics. However patient is refusing nursing care at this time. He is also refusing all blood draws including a PT/ INR to check his Coumadin levels - Patient will need Arana catheter removal he is able to urinate on his own. 3 Severe Sepsis and Escherichia coli septicemia. Present on admission and resolved.. - Patient does have Escherichia coli bacteremia. Source is kidney and bladder infection. - Culture grew E-coli. Patient is on Ceftriaxone after a short run of ertapenem yesterday. - Continue antibiotics for a total of 14 days. Patient is on day 10 of 14. Will change Rocephin to Ceftin near 300 mg by mouth twice a day for 4 more days. 4 Lactic acidosis. Present on admission. Resolved - Due to tissue hypoxia from sepsis 5 Acute Kidney Injury. Present on admission: Resolved - Likely due to pre renal azotemia - Creatinine improved, will stop hydration. 6 Acute Encephalopathy. Present on admission: Dramatically improved. - Patient is at high risk for delirium, avoid psychoactive if possible - Patient refused blood draws again this morning and pharmacy is having difficulty dosing his Coumadin without blood draws. - After informed patient that I was going to consult hospice and palliative care , due to his refusal of blood draws and nursing care, he thinks may 7 Chronic systolic heart failure, POA and now stable. - We will continue to hold diuretics for now - We will continue to monitor closely for clinical evidence of fluid overload - Carvedilol started at 3.25 mg by mouth twice a day 8 Chronic Atrial fibrillation, POA and stable. Warfarin per pharmacy. Over anticoagulated today, will hold dose tonight. rate controlled currently - Continue to monitor on telemetry - We will discontinue Coumadin as patient is refusing blood draws - Carvedilol 3.125 mg by mouth twice a day ordered. Patient is now a DNR/DNI after long discussion with patient and his brother Jose , who discussed the case with his brother Jeremy and sister Jacinta. Disposition: Plan is for to be discharging patient home with hospice care. Exam Vital Signs (Last) Date Time Temp Pulse Resp B/P Pulse Ox O2 Delivery O2 Flow Rate FiO2 11/25/16 16:20 72 95 Room Air 11/25/16 05:04 20 11/24/16 21:02 36.7 151/82 Exam General: Patient is in no apparent distress. However, patient gets very upset when nursing staff attempts to move him even to clean him up after soiling himself. HEENT: Head is atraumatic and normocephalic. Eyes: Pupils are equally round and reactive to light and accommodation. Extraocular muscles are intact. Sclera are white, anicteric. Subconjunctival mucosa is pink. Ears and nose are unremarkable. Oropharynx: There is no mucosal lesions, there is no thrush, there is no pharyngitis. Neck: Is supple, there are no nodes, or masses or tenderness. Chest: Is fairly clear to auscultation and percussion. There are no rales, rhonchi, wheezes or rubs. However breath sounds are shallow. Heart: Rate, rhythm is regular. There is no new murmur, rub or gallop. Abdomen: Good bowel sounds are present. Abdomen is obese, soft, there is nonspecific tenderness, no organomegaly or masses were appreciated. Extremities: Are symmetrical and well perfused. There is symmetrical edema, there is no cellulitis, no rash. Edema appears slightly improved today. The right wrist appears to be tender to touch and any range of motion. Neurologic: There are no focal neurological deficits. Cranial nerves II through XII are intact. There are no sensory or motor deficits. However, patient exhibits generalized weakness. Patient also appears to have expressive aphasia and has difficulty getting any words out. He did thank me after I told him that I was gone going to consult hospice services to discuss care with him as he is refusing all nursing care and blood draws. Psychiatric: Patients mood is calm and shows no sign of agitation. Genital: Deferred Rectal: Deferred Test 11/14/16 23:10 11/15/16 00:26 11/15/16 06:55 11/16/16 03:26 Band Neutrophils % 0% (1-5) Hemoglobin A1c 5.3% (4.8-5.6) Troponin T 0.013ug/L (0.0-0.011) Pro-B-Type Natriuretic Peptide 3454pg/mL (0-486) Urine Legionella pneumophilia Ag Negative (Negative) Lactic Acid Level 1.8mmol/L (0.4-2.0) Phosphorus Level 2.9mg/dL (2.5-4.9) Test 11/18/16 04:00 11/20/16 03:20 11/21/16 06:17 11/24/16 00:45 Prealbumin 13mg/dL (20-40) White Blood Count 9.2th/mm3 (3.8-10.1) Red Blood Count 4.11mil/mm3 (4.40-5.80) Hemoglobin 13.3g/dL (13.8-17.2) Hematocrit 41.6% (41.0-50.0) Mean Corpuscular Volume 101.2fL (81-100) Mean Corpuscular Hemoglobin 32.4pg (27.0-35.0) Mean Corpuscular Hemoglobin Concent 32.0% (32.0-37.0) Red Cell Distribution Width 14.3% (12.3-15.4) Platelet Count 208bil/L (150-400) Neutrophils (%) (Auto) 51.1% (40-74) Lymphocytes (%) (Auto) 22.5% (14-46) Monocytes (%) (Auto) 21.5% (4-12) Eosinophils (%) (Auto) 1.9% (0-5) Basophils (%) (Auto) 1.0% (0-3) Procalcitonin 0.29ng/mL (0.00-0.08) Prothrombin Time 26.1sec (8.1-12.5) Prothromb Time International Ratio 2.40ratio Sodium Level 140mEq/L (134-144) Potassium Level 4.1mEq/L (3.5-5.2) Chloride Level 101mEq/L (97-108) Carbon Dioxide Level 27mmol/L (18-29) Blood Urea Nitrogen 10mg/dL (8-27) Creatinine 0.65mg/dL (0.76-1.27) Estimat Glomerular Filtration Rate 127mL/min (>59) Glucose Level 106mg/dL (60-99) Calcium Level 9.2mg/dL (8.5-10.1) Magnesium Level 1.8mg/dL (1.6-2.6) Total Bilirubin 0.8mg/dL (0.0-1.2) Aspartate Amino Transf (AST/SGOT) 24U/L (0-50) Alanine Aminotransferase (ALT/SGPT) 18U/L (0-44) Alkaline Phosphatase 61U/L (25-160) Total Protein 6.5g/dL (6.4-8.4) Albumin 3.1g/dL (3.4-5.0) Urine Color Dark yellow (YELLOW) Urine Appearance Hazy (CLEAR,HAZY) Urine pH 5.0 (5.0-8.0) Urine Specific [place] 1.020 (1.003-1.035) Urine Protein 30mg/dL (NEG,TRACE) Urine Glucose (UA) Negativemg/dL (NEGATIVE) Urine Ketones Negativemg/dL (NEGATIVE) Urine Occult Blood Large (NEGATIVE) Urine Nitrite Negative (NEGATIVE) Urine Bilirubin Negative (NEGATIVE) Urine Urobilinogen Normalmg/dL (NORMAL) Urine Leukocyte Esterase Small (NEGATIVE) Urine RBC 0-2/hpf (0-2) Urine WBC 6-10/hpf (0-5) Urine Epithelial Cells Occasional/hpf (NONE-MOD) Urine Crystals None seen (NONE SEEN) Urine Bacteria Moderate/hpf (NONE-FEW) Urine Hyaline Casts Occasional/lpf (NONE) Urine Granular Casts Occasional (NONE SEEN) Urine Waxy Casts None seen (NONE SEEN) Urine Red Blood Cell Casts None seen (NONE SEEN) Urine White Blood Cell Casts None seen (NONE SEEN) Urine Mucus Present (None Seen) Urine Trichomonas None seen (NONE SEEN) Urine Yeast None (NONE SEEN) Urinalysis Comment None Urine Culture Reflexed Indicated Microbiology Results Specimen: [id number] Collected: 11/15/16 Status: COMP Req#: [id number] Received: 11/16/16 Source: SPUTUM EXP Sp Desc : Subm Dr: Malcolm Beatty MD Ordered: GRAM SPT REFLEX, SPUTUM CULTURE Comments: Collected by Nurse/Unit? Y/N Y Procedure Result Verified Site Microbiology HENRRY CULT SPUTUM GS Final 11/16/16 SPT GRAM STAIN RARE MIXED NORMAL STALIN RARE POLYS RARE EPITHELIAL CELLS This Spec is of good Quality and acceptable for Cult RESPIRATORY CULTURE Final 11/18/16 Organism 1 ESCHERICHIA COLI COLONY COUNT/QUANTITY MODERATE GROWTH Organism 2 WITH NORMAL STALIN COLONY COUNT/QUANTITY LIGHT GROWTH 1. ESCHERICHIA COLI M.I.C Interp --------- ------ * AMIKACIN <=2 S * AMPICILLIN >=32 R * AMPICILLIN/SULBACTAM >=32 R * CEFEPIME <=1 S * CEFOXITIN 8 S * CEFTRIAXONE <=1 S * CIPROFLOXACIN <=0.25 S * ERTAPENEM <=0.5 S * GENTAMICIN <=1 S * MEROPENEM <=0.25 S * TOBRAMYCIN <=1 S * TRIMETHOPRIM/SULFAMETHOXAZOLE >=320 R * PIPERACILLIN/TAZOBACTAM <=4 S Specimen: [id number] Collected: 11/14/16 Status: LAURYN Wiggins#: [id number] Received: 11/14/16 Source: BLOOD Sp Desc : GRAEME Child Dr: DOC,ED MD Ordered: Comments: Collected by Nurse/Unit? Y/N Y BC Procedure Result Verified Site Microbiology HERNRY CULTURE BLOOD Final 11/17/16-0653 Organism 1 ESCHERICHIA COLI GRAM STAIN RESULT GRAM NEGATIVE RODS BC BOTTLE Isolated from Anaerobic Bottle of Set Drawn DATE CALLED: 11/15/16 TIME CALLED: 2105 CALLED BY: CASI Serrano FLOOR/DOCTOR: CCU/KATIE Girard BC READ BACK YES TYPE OF DRAW NURSE COLLLECT TYPE NOT SPECIFIED TIME OF POSITIVITY 2030 GRAM STAIN RESULT GRAM NEGATIVE RODS BC BOTTLE2 Isolated from Aerobic Bottle of Set Drawn DATE CALLED: 11/16/16 TIME CALLED: 045 CALLED BY: STEVEN FLOOR/DOCTOR: CCU/ESTELA MARTINEZ BC READ BACK Y TYPE OF DRAW NURSE COLLECT TYPE NOT INDICATED TIME OF POSITIVITY 0435 ESCHERICHIA COLI ISOLATED FROM FOUR OF FOUR BOTTLES COLLECTED 11/14 1. ESCHERICHIA COLI M.I.C Interp --------- ------ * AMIKACIN <=2 S * AMPICILLIN >=32 R * AMPICILLIN/SULBACTAM >=32 R * CEFEPIME <=1 S * CEFOXITIN 16 I * CEFTRIAXONE <=1 S * CIPROFLOXACIN <=0.25 S CONTINUED ON NEXT PAGE RUN DATE: 11/17/16 [facility] LIVE PAGE 2 RUN TIME: 652 Specimen Inquiry PHYSICIAN Patient: MARAYINKA Steele [id number] (Continued) Specimen: [id number] Collected: 11/14/16 Received: 11/14/16-2316 (Continued) Procedure Result Verified Site HENRRY CULTURE BLOOD Final (continued) 11/17/16-652 1. ESCHERICHIA COLI (continued) M.I.C Interp --------- ------ * ERTAPENEM <=0.5 S * GENTAMICIN <=1 S * MEROPENEM <=0.25 S * TOBRAMYCIN <=1 S * TRIMETHOPRIM/SULFAMETHOXAZOLE >=320 R * PIPERACILLIN/TAZOBACTAM <=4 S Discharge Medications Discharge Medications Allopurinol (Allopurinol) 100 Mg Tablet 100 MG PO QAM (Reported) Aripiprazole (Abilify) 2 Mg Tablet 2 MG PO DAILY Prescribed by: NITO HALL MD Carvedilol (Carvedilol) 3.125 Mg Tablet 3.125 MG PO BIDWM Prescribed by: NITO HALL MD Cefdinir (Cefdinir) 300 Mg Capsule 300 MG PO BID Prescribed by: NITO HALL MD Celecoxib (Celebrex) 200 Mg Capsule 200 MG PO QAM (Reported) Citalopram (Citalopram) 20 Mg Tablet 60 MG PO QAM (Reported) Flunisolide (Flunisolide) 25 Ml [place] 2 SPRAYS NOSTRIL HS (Reported) thursday Guaifenesin/Dextromethorphan (Robitussin Whhfm-Ugzpd-Aszb Dm) 200 Mg-10 Mg Capsule 5 ML PO Q6H (Reported) Guaifenesin/Dextromethorphan (Robitussin Cough-Chest Dm Liq) 100 Mg-5 Mg/5 Ml Liquid 10 ML PO Q6H (Reported) Lactobacillus Acidophilus (Probiotic) 1 Each Capsule 1 EACH PO DAILY (Reported) Lanolin Alcohol/Mo/W.pet/[place] (Eucerin Creme) 454 Gm Cream..g. 454 GM TP BID ( Reported) Metolazone (Metolazone) 2.5 Mg Tablet 2.5 MG PO every other day (Reported) Hope-3 Fatty Acids/Fish Oil (Hope 3 1,000 mg Softgel) 1 Each Capsule 1 EACH PO DAILY (Reported) Potassium Chloride (Potassium Chloride) 20 Meq Tab.er.prt 20 MEQ PO DAILYWM Prescribed by: NITO HALL MD Pregabalin (Lyrica) 150 Mg Capsule 150 MG PO BID (Reported) Ranitidine (Ranitidine) 150 Mg Capsule 150 MG PO BID (Reported) Torsemide (Torsemide) 20 Mg Tablet 80 MG PO DAILY (Reported) Vit B Comp/C/FA/Iron/Vit E (Vitamin B Complex Tablet) 1 Each Tablet 1 EACH PO DAILY (Reported) Zolpidem Tartrate (Edluar) 5 Mg Tab.subl 5 MG PO HS (Reported) As needed Calcitonin,Earth,Synthetic (Calcitonin-Earth) 3.7 Ml [place].pump 3.7 ML NS DAILY PRN PRN alternate nostrils (Reported) Diphenoxylate/Atropine 2.5-0.025 mg (Lomotil 2.5-0.025 mg) 1 Each Tablet 1 TABLET PO BID PRN PRN For Diarrhea or Loose Stool Prescribed by: REAL LUCIO Lactulose (Lactulose) 20 Gm/30 Ml Solution 40 GM PO BID PRN PRN For Constipation (Reported) Loperamide/Simethicone (Imodium Multi-Symptom Rel Cplt) 1 Each Tablet 1 EACH PO PRN For Diarrhea or Loose Stool (Reported) Lubiprostone (Amitiza) 24 Mcg Capsule 24 MCG PO BID PRN PRN opioid induced constipation (Reported) Magnesium Citrate (Magnesium Citrate) 296 Ml Solution 148 ML PO PRN For Constipation (Reported) Nitroglycerin SL (Nitrostat) 0.4 Mg Tab.subl 0.4 MG SL Q5MIN PRN PRN For Chest Pain (Reported) Nystatin (Nystatin) 1 Each Powder.ea. 1 EACH MC TID PRN PRN For Itching ( Reported) Polyethylene Glycol 3350 (Miralax) 17 Gm Powd.pack 17 GM PO DAILY PRN PRN For Constipation (Reported) Saccharomyces Boulardii (Florastor) 250 Mg Capsule 250 MG PO BID PRN PRN For Diarrhea or Loose Stool (Reported) oxyCODONE-Acetaminophen 10-325 mg (oxyCODONE-Acetaminophen 10-325 mg) 1 Each Tablet 1 TABLET PO Q6H PRN PRN For Pain (Reported) Followup Plan Disposition: Patient is being discharged back to [facility] and will be enrolled in hospice in the a.m. Discharge Diet: No restrictions (The patient may resume usual diet as tolerated.) Discharge Activity: No restrictions (The patient may resume usual activities gradually as tolerated.) Follow-up Provider: Van Sutton MD Follow-up with PCP in: 1 week Follow-up in: 1 week (Hospice provider assigned to patient) Time spent Time spent on discharging this patient was greater than 35 minutes, over half of which was involved in counseling and coordination of care. Ld Hall MD Nov 26, 2016 00:33
--- NOTE | 2016-11-26 11:32 | NUR ---
Palliative care note D/A: Note that POLST was completed with pt and brother as well as Dr. Smith on 11/24/16. Decision was reached for pt be DNAR with comfort measures only as well as for pt to not have medically assisted nutrition via tube. POLST signed by pt crystal Wilkins on 11/24/16. Pt discharged to [facility] on 11/25/16. POLST faxed to facility today. P: No further need for PC to follow. Mariel GARCIA, CCM
== END 2016-11-25 17:11 | DRG 871 ==
LOC: SED 22:58 → CCU 11-15 01:26 → PCC 11-17 09:00 → MPC 11-20 15:58
PROVIDERS: ADMIT Hospitalist; ATTEND Hospitalist
PROC: 5A09357 Assistance with Respiratory Ventilation, Less than 24 Consecutive Hours, Continuous Positive Airway Pressure (ICD-10-PCS; principal; 2016-11-14)
PROC: 4A033R1 Measurement of Arterial Saturation, Peripheral, Percutaneous Approach (ICD-10-PCS; 2016-11-14)
DX: A41.51 Sepsis due to Escherichia coli [E. coli] (principal); G93.41 Metabolic encephalopathy; J96.01 Acute respiratory failure with hypoxia; I50.23 Acute on chronic systolic (congestive) heart failure; N39.0 Urinary tract infection, site not specified; N17.9 Acute kidney failure, unspecified; G23.8 Other specified degenerative diseases of basal ganglia; E87.2 Acidosis; R65.20 Severe sepsis without septic shock; I48.2 Chronic atrial fibrillation; Z79.01 Long term (current) use of anticoagulants; Z95.0 Presence of cardiac pacemaker; B96.20 Unspecified Escherichia coli [E. coli] as the cause of diseases classified elsewhere; Z66 Do not resuscitate